=== PATIENT | male | born 1955 | race Caucasian/White ===

== ENCOUNTER 2016-09-15 17:06 | Inpatient (IN) | payer OTHER ==
[~2016-09-15] VITALS: Ht 170.2 cm; Wt 96.0 kg
[~2016-09-15 17:06] MED LIST: BENA40TA54 PO; CEPH500C PO; CLON0.2T5 PO; FENO54TA7 PO; FINA5TAB4 PO; LORA-444 PO; MECL-77 PO; METF500T4 PO; NIFE30TA60 PO; SERT-165 PO; SERT20OR2 PO; TAMS0.4C2 PO; TRAZ50TA18 PO; [UNRECOGNIZED DRUG - CODE] IM
[2016-09-15] MEDS ORDERED: ONDANSETRON 4 MG INJ IV STA (18:32)
[2016-09-15] MEDS ORDERED: NITROGLYCERIN 2% 1 GM OINT PKT TD STA (18:32)
[2016-09-15] MEDS ORDERED: morphine 4 MG/ML VIAL IV STA (18:32)
[2016-09-15] MEDS ORDERED: FUROSEMIDE 40 MG INJ IV STA (18:32)
[2016-09-15] MEDS ORDERED: NPH,100V SQ (18:58)
[2016-09-15] MEDS ORDERED: NITROGLYCERIN (SL) 0.4 MG TAB SL PRN (19:00)
[2016-09-15] MEDS ORDERED: LORA1TAB PO (19:00)
[2016-09-15] MEDS ORDERED: MECL-77 PO (19:01)
[2016-09-15] MEDS ORDERED: SERT50TA6 PO (19:04)
[2016-09-15] MEDS ORDERED: PRED20TA PO (19:05)
[2016-09-15] MEDS ORDERED: TAMS0.4C2 PO (19:05)
[2016-09-15] MEDS ORDERED: ASPI81TA3 PO (19:07)
[2016-09-15] MEDS ORDERED: TERA5CAP3 PO (19:07)
[2016-09-15] MEDS ORDERED: GLIM2TAB PO (19:08)
[2016-09-15] MEDS ORDERED: METO10TA92 PO (19:09)
[2016-09-15] MEDS ORDERED: NOVO3I SC (19:13)
[2016-09-15] MEDS ORDERED: PANT40TA4 PO (19:14)
[2016-09-15] MEDS ORDERED: PARO-37 PO (19:15)
[2016-09-15] MEDS ORDERED: POLY17PO3 PO (19:18)
[2016-09-15] MEDS ORDERED: DOCU100T PO (19:19)
[2016-09-15 19:21] LABS: ADD SCAN DIFF NO
[2016-09-15] MEDS ORDERED: FENO54TA7 PO (19:21)
[2016-09-15] MEDS ORDERED: FINA5TAB4 PO (19:22)
[2016-09-15] MEDS ORDERED: FURO40TA4 PO (19:23)
[2016-09-15 19:24] LABS: BASOPHILS % 0.3 % (0.0-2.0); EOSINOPHILS # 0.2 10^3/ul (0.0-0.5); EOSINOPHILS % 2.9 % (0.0-7.0); HEMATOCRIT 27.5 % (42.0-52.0); HEMOGLOBIN 9.2 g/dl (14.0-18.0); LYMPHOCYTES # 1.2 10^3/ul (0.8-2.9); LYMPHOCYTES % 19.7 % (15.0-51.0); MEAN CORPUSCULAR HEMOGLOBIN 30.8 pg (29.0-33.0); MEAN CORPUSCULAR HGB CONC 33.5 g/dl (32.0-37.0); MEAN PLATELET VOLUME 11.9 fl (7.4-10.4); MONOCYTE # 0.5 10^3/ul (0.3-0.9); MONOCYTES % 8.3 % (0.0-11.0); NEUTROPHILS % 68.5 % (39.0-77.0); PLATELET COUNT 199 10^3/UL (140-415); RED BLOOD COUNT 2.99 10^6/ul (4.70-6.10); RED CELL DISTRIBUTION WIDTH 13.7 % (11.5-14.5); WHITE BLOOD COUNT 5.9 10^3/ul (4.8-10.8)
[2016-09-15] MEDS ORDERED: GEMF600T60 PO (19:24)
[2016-09-15] MEDS ORDERED: GABA-526 PO (19:24)
[2016-09-15] MEDS ORDERED: ATEN50TA PO (19:28)
[2016-09-15] MEDS ORDERED: ATOR20TA38 PO (19:29)
[2016-09-15] MEDS ORDERED: BENA10TA48 PO (19:29)
[2016-09-15] MEDS ORDERED: CARV12.579 PO (19:30)
[2016-09-15] MEDS ORDERED: CLON0.2T5 PO (19:31)
[2016-09-15 19:44] LABS: ALBUMIN 4.1 g/dl (3.3-4.9); ALBUMIN/GLOBULIN RATIO 1.86; BILIRUBIN,INDIRECT 0.3 mg/dl (0-1.1); BILIRUBIN,TOTAL 0.3 mg/dl (0.2-1.3); CALCIUM 8.9 mg/dl (8.4-10.2); CREATININE 1.49 mg/dl (0.61-1.24); POTASSIUM 3.7 mmol/L (3.5-5.1); TOTAL PROTEIN 6.3 g/dl (6.1-8.1)
[2016-09-15 19:55] LABS: TROPONIN-I 0.026 ng/ml (0.00-0.12)
--- NOTE | 2016-09-15 20:33 | RADRPT ---
PROCEDURE: XR Chest. CLINICAL INDICATION: Chest pain and dyspnea TECHNIQUE: AP Portable chest. COMPARISON: None available FINDINGS: The soft tissues and bones are remarkable for thoracic spondylosis and bilateral acromioclavicular o steoarthropathy. Mild coarse bilateral interstitial edema is present. Mild cardiomegaly is present with vascular calcifications of the thoracic aorta. No focal infiltrates, masses, or effusions are noted. No pneumothorax is present. IMPRESSION: 1. Mild cardiogenic pulmonary venous hypertension 2. Mild cardiomegaly and atherosclerotic vascular disease 3. Bilateral acromioclavicular osteoarthropathy and thoracic spondylosis. RPTAT: HDC .Charu Batres MD, Date Time Electronically viewed and signed by .Charu Batres MD, on 09/15/2016 20:32 .C/
--- NOTE | 2016-09-15 21:28 | ERA ---
ER Documentation Chief Complaint Date/Time DATE: 09/15/16 TIME: 21:23 Chief Complaint CHEST PAIN, SOB, ONSET TODAY, SENT PER PMD HPI This is a 60-year-old male who is here for chest pain and shortness of breath. The patient states that he is having some swelling around his ankles and feet off and on for the past few months. He said he has been to all of the hospital multiple occasions but he has not been told why he keeps getting short of breath. Patient states he gets recurrent swelling and shortness of breath on several occasions and he has dyspnea on exertion and orthopnea. He says it has been going on now for the past 3 or 4 days and is getting worse. He says it happened a hard time walking across the room. And is also getting shortness of breath at rest. Denies any cough fever. He says his chest pain is a tight feeling in the chest that tends to come and go with no radiation no palpitations or dizziness or syncope. ROS All systems reviewed and are negative except as per history of present illness. Medications Home Meds Reported Medications Clonidine Hcl* (Clonidine Hcl*) 0.2 Mg Tablet, 0.2 MG PO TID Y for HTN, TAB 09/15/16 Carvedilol* (Carvedilol*) 12.5 Mg Tablet, 12.5 MG PO BID, #60 TAB 09/15/16 Benazepril Hcl* (Benazepril Hcl*) 10 Mg Tablet, 10 MG PO DAILY, #30 TAB 09/15/16 Atorvastatin Calcium* (Atorvastatin Calcium*) 20 Mg Tablet, 20 MG PO DAILY, #30 TAB 09/15/16 Atenolol* (Atenolol*) 50 Mg Tablet, 50 MG PO BID, #60 TAB 09/15/16 Gemfibrozil* (Gemfibrozil*) 600 Mg Tablet, 600 MG PO BID, TAB 09/15/16 Gabapentin* (Gabapentin*) 600 Mg Tablet, 600 MG PO TID, #90 TAB 09/15/16 Furosemide* (Furosemide*) 40 Mg Tablet, 40 MG PO BID, TAB 09/15/16 Finasteride* (Finasteride*) 5 Mg Tablet, 5 MG PO QHS, TAB 09/15/16 Fenofibrate, Micronized (Fenofibrate) 54 Mg Tablet, 54 MG PO DAILY, TAB 09/15/16 Docusate Sodium* (Dok*) 100 Mg Tablet, 100 MG PO DAILY, #30 CAP 09/15/16 Polyethylene Glycol* (Polyethylene Glycol*) 17 Gm Powd.pack, 17 GM PO BID, #60 PACKET 09/15/16 Paroxetine Hcl* (Paroxetine*) 20 Mg Tablet, 20 MG PO DAILY, TAB 09/15/16 Pantoprazole* (Pantoprazole*) 40 Mg Tablet.dr, 40 MG PO AC BREAKFAST DINNER, TAB 09/15/16 Insulin Aspart* (Novolog Insulin Pen*) 100 Unit/Ml Soln, 0 SC WITH MEALS BEDTIME for SLIDING SCALES, EA TAKE 2-10 UNITS 09/15/16 Metoclopramide* (Reglan*) 10 Mg Tablet, 10 MG PO AC MEALS, TAB 09/15/16 Glimepiride* (Glimepiride*) 2 Mg Tablet, 2 MG PO WITH BREAKFAST DINNE, TAB 09/15/16 Aspirin* (Aspirin* Chew) 81 Mg Tab.chew, 81 MG PO DAILY, TAB.CHEW 09/15/16 Terazosin Hcl* (Terazosin Hcl*) 5 Mg Capsule, 10 MG PO HS, CAP 09/15/16 Tamsulosin Hcl* (Tamsulosin Hcl*) 0.4 Mg Cap.er.24h, 0.4 MG PO DAILY, CAP 09/15/16 Prednisone* (Prednisone*) 20 Mg Tab, 20 MG PO DAILY, TAB 09/15/16 Sertraline Hcl* (Sertraline Hcl*) 50 Mg Tablet, 50 MG PO QHS, #30 TAB 09/15/16 Meclizine Hcl* (Meclizine Hcl*) 25 Mg Tablet, 25 MG PO DAILY Y for DIZZINESS, TAB 09/15/16 Lorazepam* (Lorazepam*) 1 Mg Tablet, 1 MG PO HS Y for ANXIETY, #30 TAB 09/15/16 Insulin NPH Human Isophane (Humulin N) 100 Unit/1 Ml Vial, 6 UNIT SQ Q6H, VIAL 09/15/16 Discontinued Reported Medications Tamsulosin Hcl* (Tamsulosin Hcl*) 0.4 Mg Cap.er.24h, PO 05/23/13 Sertraline Hcl* (Sertraline Hcl*) 100 Mg Tablet, 100 MG PO 05/23/13 Sertraline Hcl* (Sertraline Hcl*) 20 Mg/Ml Oral.conc, 20 MG PO 05/23/13 Meclizine Hcl* (Meclizine Hcl*) 25 Mg Tablet, 25 MG PO 05/23/13 Influenza Tv-S 10-11 Vaccine (FLUVIRIN) 45 Mcg/0.5 Ml Vial, 45 MCG IM, VIAL 05/23/13 Finasteride* (Finasteride*) 5 Mg Tablet, PO 05/23/13 Fenofibrate, Micronized (Fenofibrate) 54 Mg Tablet, 54 MG PO 05/23/13 Cephalexin* (Cephalexin*) 500 Mg Capsule, PO 05/23/13 Benazepril Hcl* (Lotensin*) 40 Mg Tablet, 40 MG PO 05/23/13 Trazodone Hcl* (Trazodone Hcl*) 50 Mg Tablet, 50 MG PO HS 05/20/11 Metformin Hcl* (Metformin Hcl*) 500 Mg Tablet, 500 MG PO DAILY 05/20/11 Nifedipine* (Nifedipine ER*) 30 Mg Tablet.sa, 30 MG PO DAILY 05/20/11 Lorazepam* (Ativan*) 2 Mg Tablet, 2 MG PO Y 05/20/11 Clonidine Hcl* (Clonidine Hcl*) 0.2 Mg Tablet, 0.2 MG PO DAILY 05/20/11 Allergies Allergies: Coded Allergies: No Known Drug Allergies (Verified Allergy, Unknown, 09/15/16) PMhx/Soc History of Surgery: Yes Anesthesia Reaction: No Hx Respiratory Disorders: No Hx Cardiac Disorders: No Hx Psychiatric Problems: No Hx Miscellaneous Medical Probl: Yes Hx Alcohol Use: Yes Hx Substance Use: No Hx Tobacco Use: Yes Smoking Status: Never smoker FmHx Family History: No coronary disease Physical Exam Vitals Vital Signs Date Time Temp Pulse Resp B/P Pulse Ox O2 Delivery O2 Flow Rate FiO2 09/15/16 19:00 Nasal Cannula 2 09/15/16 19:00 98.2 82 18 166/108 98 Room Air 09/15/16 17:10 98.4 73 19 190/109 96 Physical Exam Const: Well-developed, well-nourished Head: Atraumatic, normocephalic Eyes: Normal Conjunctiva, PERRLA, EOMI, normal sclera, no nystagmus ENT: Normal External Ears, Nose and Mouth, moist mucus membranes. Neck: Full range of motion. No meningismus, no lymphadenopathy. Resp: No increased work of breathing with diffuse crackles throughout the lung hodgson Cardio: Regular rate and rhythm, no murmurs, S1 S2 present Abd: Soft, non tender x 4, non distended. Normal bowel sounds, no guarding or rebound, no pulsitile abdominal masses or bruits Skin: No petechiae or rashes, no ecchymosis , no maculopapular rash Back: No midline or flank tenderness Ext: No cyanosis, edema to the feet and ankles, FROM x 4, normal inspection, neurovascularly intact x 4 Neur: Awake and alert, STR 5/5 x 4, sensation intact x 4, no focal findings, cerebellum intact Psych: Normal Mood and Affect Result Diagram: 09/15/16190909/15/161909 Results 24 hrs Laboratory Tests Test 09/15/16 19:10 White Blood Count 5.910^3/ul Red Blood Count 2.9910^6/ul Hemoglobin 9.2g/dl Hematocrit 27.5% Mean Corpuscular Volume 92.0fl Mean Corpuscular Hemoglobin 30.8pg Mean Corpuscular Hemoglobin Concent 33.5g/dl Red Cell Distribution Width 13.7% Platelet Count 20377^3/UL Mean Platelet Volume 11.9fl Neutrophils % 68.5% Lymphocytes % 19.7% Monocytes % 8.3% Eosinophils % 2.9% Basophils % 0.3% Nucleated Red Blood Cells % 0.0/100WBC Neutrophils # 4.010^3/ul Lymphocytes # 1.210^3/ul Monocytes # 0.510^3/ul Eosinophils # 0.210^3/ul Basophils # 0.010^3/ul Nucleated Red Blood Cells # 0.010^3/ul Sodium Level 139mmol/L Potassium Level 3.7mmol/L Chloride Level 105mmol/L Carbon Dioxide Level 28mmol/L Anion Gap 10 Blood Urea Nitrogen 12mg/dl Creatinine 1.49mg/dl Glucose Level 59mg/dl Calcium Level 8.9mg/dl Total Bilirubin 0.3mg/dl Direct Bilirubin 0.00mg/dl Indirect Bilirubin 0.3mg/dl Aspartate Amino Transf (AST/SGOT) 56IU/L Alanine Aminotransferase (ALT/SGPT) 53IU/L Alkaline Phosphatase 70IU/L Troponin I 0.026ng/ml B-Type Natriuretic Peptide 3160PG/ML Total Protein 6.3g/dl Albumin 4.1g/dl Globulin 2.20g/dl Albumin/Globulin Ratio 1.86 Current Medications Medications (Trade) Dose Ordered Sig/Deon Route PRN Reason Start Time Stop Time Status Last Admin Dose Admin Nitroglycerin (Nitroglycerin 2% Oint) 1 inch ONCE STAT TD 09/15/16 18:32 09/15/16 18:34 DC 09/15/16 19:02 Nitroglycerin (Nitroglycerin (Sl Tab) 0.4 Mg) 1 tab Q5M UP TO 3 DOSES PRN SL CHEST PAIN 09/15/16 19:00 09/15/16 19:39 Morphine Sulfate (morphine) 4 mg ONCE STAT IV 09/15/16 18:32 09/15/16 18:34 DC 09/15/16 19:02 Ondansetron HCl (Zofran Inj) 4 mg ONCE STAT IV 09/15/16 18:32 09/15/16 18:34 DC 09/15/16 19:02 Furosemide (Lasix) 40 mg ONCE STAT IV 09/15/16 18:32 09/15/16 18:34 DC 09/15/16 19:02 Procedures/MDM EKG: Rate/Rhythm: Normal sinus rhythm heart rate [address] changes QRS, ST, QT: NORMAL VT, QRS, QT] Impression: NORMAL EKG PROCEDURE: XR Chest. CLINICAL INDICATION: Chest pain and dyspnea TECHNIQUE: AP Portable chest. COMPARISON: None available FINDINGS: The soft tissues and bones are remarkable for thoracic spondylosis and bilateral acromioclavicular osteoarthropathy. Mild coarse bilateral interstitial edema is present. Mild cardiomegaly is present with vascular calcifications of the thoracic aorta. No focal infiltrates, masses, or effusions are noted. No pneumothorax is present. IMPRESSION: 1. Mild cardiogenic pulmonary venous hypertension 2. Mild cardiomegaly and atherosclerotic vascular disease 3. Bilateral acromioclavicular osteoarthropathy and thoracic spondylosis. RPTAT: HDC .Charu Batres MD, MD Date Time Electronically viewed and signed by .Charu Batres MD, on 09/15/2016 20: 32 .C/ CC: MART CARNES DO Patient has elevated BNP. Is also having chest pain with CHF symptoms. Patient was given some Lasix for diuresis Patient's symptoms are concerning for cardiac cause will require inpatient workup and continuous monitoring. Further w/u for ischemia, arrhythmia, PE or dissection will be deferred to the inpatient team. Accepting Care Team: Current data and ongoing care discussed. Time: Time of admission Primary Provider: [XOXOXO] Consulting: [XOXOXO] Outstanding Data: none Departure Diagnosis: Primary Impression: Chest pain Qualified Code: R07.9 - Chest pain, unspecified type Additional Impression: CHF (congestive heart failure) Qualified Code: I50.9 - Congestive heart failure, unspecified congestive heart failure chronicity, unspecified congestive heart failure type Condition: Stable MART CARNES DO Sep 15, 2016 21:28
[2016-09-15] MEDS ORDERED: ASPIRIN 325 MG TAB PO ONE (21:29)
[2016-09-15] MEDS ORDERED: ONDANSETRON 4 MG INJ IV PRN (23:00)
[2016-09-15] MEDS ORDERED: ACETAMINOPHEN 325 MG TAB PO PRN (23:00)
[2016-09-15 23:23] VITALS: TEMP 98.2
[2016-09-16] VITALS (11 sets, daily range): BP systolic 132–158; BP diastolic 68–84; PULSE 54–70; RESP 17–20; Ht 170.2 cm; Wt 96.0 kg
[2016-09-16] MEDS ORDERED: TRAZ50TA18 PO (06:45)
[2016-09-16] MEDS ORDERED: LATA2.5D2 BOTH EYES (06:45)
[2016-09-16] MEDS ORDERED: LORAZEPAM 1 MG TAB PO PRN (07:00)
[2016-09-16] MEDS ORDERED: GLUCOSE GEL 15 GRAM TUBE BUCCAL PRN (07:00)
[2016-09-16] MEDS ORDERED: NITROGLYCERIN (SL) 0.4 MG TAB SL PRN (07:00)
[2016-09-16] MEDS ORDERED: MECLIZINE 25 MG TAB PO PRN (07:00)
[2016-09-16] MEDS ORDERED: GLUCAGON 1 MG INJ IM PRN (07:00)
[2016-09-16] MEDS ORDERED: GLUCOSE GEL 15 GRAM TUBE PO PRN ×2 (07:00)
[2016-09-16] MEDS ORDERED: DEXTROSE 50% 50 ML SYRINGE IV PRN ×2 (07:00)
[2016-09-16] MEDS: INSULIN ASPART [NOVOLOG] 3 ML PEN SC SCH ×7 (07:55→20:37)
[2016-09-16] MEDS: INSULIN GLARGINE [LANtus] 3 ML PEN SC SCH (08:00)
[2016-09-16 08:44] LABS: CHOL/HDL RATIO 3.3 RATIO
[2016-09-16] MEDS: ASPIRIN 81 MG TAB PO SCH (09:21)
[2016-09-16] MEDS: PAROXETINE 20 MG TAB PO SCH (09:21)
[2016-09-16] MEDS: ATENOLOL 50 MG TAB PO SCH ×2 (09:21→21:00)
[2016-09-16] MEDS: ATORVASTATIN 20 MG TAB PO SCH (09:21)
[2016-09-16] MEDS: TAMSULOSIN (SR) 0.4 MG CAP PO SCH (09:21)
[2016-09-16] MEDS: BENAZEPRIL 10 MG TAB PO SCH (09:22)
[2016-09-16] MEDS: DOCUSATE SODIUM 100 MG CAP PO SCH (09:22)
[2016-09-16] MEDS: GEMFIBROZIL 600 MG TAB PO SCH ×2 (09:22→20:37)
[2016-09-16] MEDS: POLYETHYLENE GLYCOL 17 GM PACKET PO SCH ×2 (09:22→20:37)
[2016-09-16] MEDS: GABAPENTIN 300 MG CAP PO SCH ×3 (09:22→20:36)
[2016-09-16] MEDS: FUROSEMIDE 40 MG TAB PO SCH ×2 (09:26→17:52)
[2016-09-16] MEDS: FENOFIBRATE 48 MG TAB PO SCH (10:09)
--- NOTE | 2016-09-16 16:27 | CONS ---
Date/Time of Note Date/Time of Note DATE: 09/16/16 TIME: 16:15 Assessment/Plan Assessment/Plan Chief Complaint/Hosp Course IMP: 1.Chest pain-assess for ACS 2. SOB 3.HTN 4.HL 5. DM 6. positive tob 7.BPH 8. Anemia 9. Renal failure Rec: -Tele -serial ecg's -Complete judy -continue coreg and d/c second BB -Continue lasix diuresis and follow output/renal function -Continue asa/benazepril -Continue lopid and check fasting lipid panel and adjust as necessary Problems: Consultation Date/Type/Reason Admit Date/Time Sep 15, 2016 at 22:52 Date of Consultation: Sep 16, 2016 Type of Consultation: cardiology Reason for Consultation chest pain/sob/edema Referring Provider: KARON MEJIA MD Hx of Present Illness 60 y/o male with h/o HTN, HL, DM, BPH, ongoing tob use, psyc h d/o BPH who p./w 2 weeks of worsening sob with minimal exertion and associated Lower exetremity edema. Patient also c/o chest pain, squeezing to pressure like in nature , worse with minimal exertion, no radiation. Constitutional: no complaints Eyes: no complaints ENT: no complaints Respiratory: shortness of breath Cardiovascular: chest pain Gastrointestinal: no complaints Genitourinary: other (BPH) Musculoskeletal: bone/joint pain Skin: no complaints Neurologic: no complaints Endocrine: other (DM) Lymphatic: no complaints Psychological: no complaints Past Medical History Medical History: diabetes, high cholesterol, hypertension, other (BPH) Past Surgical History Past Surgical Hx: no surgical history Family History Significant Family History: no pertinent family hx Social History Alcohol Use: occasionally Smoking Status: Current every day smoker Drug Use: none Exam/Review of Systems Vital Signs Vitals Vital Signs Date Time Temp Pulse Resp B/P Pulse Ox O2 Delivery O2 Flow Rate FiO2 09/16/16 16:09 60 09/16/16 15:29 98.0 20 157/83 98 09/16/16 08:52 Nasal Cannula 2.0 Intake and Output 09/15/16 09/15/16 09/16/16 15:00 23:00 07:00 Output Total 150 ml Balance -150 ml Exam Constitutional: alert Psych: no complaints Head: normocephalic ENMT: mucosa pink and moist Neck: jvd (8-9 cm water), supple Respiratory: diminished breath sounds (at bases/B) Cardiovascular: regular rate and rhythm Gastrointestinal: non-tender, soft Musculoskeletal: muscle tone (normal) Extremities: edema (none) Neurological: other (no focal deficits) Results Result Diagram: 09/15/16190909/15/161909 Results 24 hrs Laboratory Tests Test 09/15/16 19:10 09/16/16 01:51 09/16/16 02:28 09/16/16 06:30 White Blood Count 5.9 Red Blood Count 2.99 L Hemoglobin 9.2 L Hematocrit 27.5 L Mean Corpuscular Volume 92.0 Mean Corpuscular Hemoglobin 30.8 Mean Corpuscular Hemoglobin Concent 33.5 Red Cell Distribution Width 13.7 Platelet Count 199 Mean Platelet Volume 11.9 H Neutrophils % 68.5 Lymphocytes % 19.7 Monocytes % 8.3 Eosinophils % 2.9 Basophils % 0.3 Nucleated Red Blood Cells % 0.0 Neutrophils # 4.0 Lymphocytes # 1.2 Monocytes # 0.5 Eosinophils # 0.2 Basophils # 0.0 Nucleated Red Blood Cells # 0.0 Sodium Level 139 Potassium Level 3.7 Chloride Level 105 Carbon Dioxide Level 28 Anion Gap 10 Blood Urea Nitrogen 12 Creatinine 1.49 H Glucose Level 59 L Calcium Level 8.9 Total Bilirubin 0.3 Direct Bilirubin 0.00 Indirect Bilirubin 0.3 Aspartate Amino Transf (AST/SGOT) 56 H Alanine Aminotransferase (ALT/SGPT) 53 Alkaline Phosphatase 70 Troponin I 0.026 B-Type Natriuretic Peptide 3160 H Total Protein 6.3 Albumin 4.1 Globulin 2.20 Albumin/Globulin Ratio 1.86 Bedside Glucose 68 L 88 Triglycerides Level 62 Cholesterol Level 113 LDL Cholesterol, Calculated 67 HDL Cholesterol 34 Cholesterol/HDL Ratio 3.3 Test 09/16/16 08:05 09/16/16 12:05 09/16/16 12:16 Bedside Glucose 79 73 Troponin I 0.019 Medications Medications Current Medications Insulin Glargine (Lantus) 15 unit DAILY@08 SC ; Start 09/16/16 at 08:00 Diagnostic Test (Pha) (Accu-Chek) 1 ea 02 XX ; Start 09/17/16 at 02:00 Nitroglycerin (Nitroglycerin (Sl Tab) 0.4 Mg) 1 tab Q5M PRN SL ANGINA; Start at 07:00 Miscellaneous Information 1 ea NOTE XX ; Start 09/16/16 at 07:00 Glucose (Glutose) 15 gm Q15M PRN PO DECREASED GLUCOSE; Start 09/16/16 at 07:00 Glucose (Glutose) 22.5 gm Q15M PRN PO DECREASED GLUCOSE; Start 09/16/16 at 07: 00 Dextrose (D50w Syringe) 25 ml Q15M PRN IV DECREASED GLUCOSE; Start 09/16/16 at 07:00 Dextrose (D50w Syringe) 50 ml Q15M PRN IV DECREASED GLUCOSE; Start 09/16/16 at 07:00 Glucagon (Glucagen) 1 mg Q15M PRN IM DECREASED GLUCOSE; Start 09/16/16 at 07:00 Glucose (Glutose) 15 gm Q15M PRN BUCCAL DECREASED GLUCOSE; Start 09/16/16 at 07 :00 Aspirin (Aspirin) 81 mg DAILY PO Last administered on 09/16/16 09:21; Admin Dose 81 MG; Start 09/16/16 at 09:00 Atenolol (Tenormin) 50 mg BID PO Last administered on 09/16/16 09:21; Admin Dose 50 MG; Start 09/16/16 at 09:00 Atorvastatin Calcium (Lipitor) 20 mg DAILY PO Last administered on 09/16/16 09 :21; Admin Dose 20 MG; Start 09/16/16 at 09:00 Benazepril HCl (Lotensin) 20 mg DAILY PO Last administered on 09/16/16 09:22; Admin Dose 20 MG; Start 09/16/16 at 09:00 Carvedilol (Coreg) 12.5 mg BID PO Last administered on 09/16/16 09:21; Admin Dose 12.5 MG; Start 09/16/16 at 09:00 Docusate Sodium (Colace) 100 mg DAILY PO Last administered on 09/16/16 09:22; Admin Dose 100 MG; Start 09/16/16 at 09:00 Gabapentin (Neurontin) 600 mg TID PO Last administered on 09/16/16 12:14; Admin Dose 600 MG; Start 09/16/16 at 09:00 Gemfibrozil (Lopid) 600 mg BID PO Last administered on 09/16/16 09:22; Admin Dose 600 MG; Start 09/16/16 at 09:00 Lorazepam (Ativan) 1 mg HS PRN PO ANXIETY; Start 09/16/16 at 07:00 Meclizine HCl (Antivert) 25 mg DAILY PRN PO DIZZINESS; Start 09/16/16 at 07:00 Paroxetine HCl (Paxil) 20 mg DAILY PO Last administered on 09/16/16 09:21; Admin Dose 20 MG; Start 09/16/16 at 09:00 Polyethylene Glycol (Miralax) 17 gm BID PO Last administered on 09/16/16 09:22 ; Admin Dose 17 GM; Start 09/16/16 at 09:00 Sertraline HCl (Zoloft) 50 mg QHS PO ; Start 09/16/16 at 21:00 Tamsulosin HCl (Flomax) 0.4 mg DAILY PO Last administered on 09/16/16 09:21; Admin Dose 0.4 MG; Start 09/16/16 at 09:00 Terazosin HCl (Hytrin) 10 mg HS PO ; Start 09/16/16 at 21:00 Fenofibrate (Tricor) 48 mg DAILY PO Last administered on 09/16/16 10:09; Admin Dose 48 MG; Start 09/16/16 at 09:00 Latanoprost (Xalatan) 1 drop QHS BOTH EYES ; Start 09/16/16 at 21:00 Trazodone HCl (Desyrel) 75 mg QHS PO ; Start 09/16/16 at 21:00 ANN OZUNA Sep 16, 2016 16:26
[2016-09-16] MEDS ORDERED: hydrALAzine 20 MG INJ IV PRN (16:30)
--- NOTE | 2016-09-16 18:11 | RADRPT ---
Echocardiogram Report Patient Name: DAIN ROMERO Gender: Male Date: 1955 Study Date: 16-Sep-2016 Manager Target: [facility] Location: [id number] Ref. Physician: KARON MEJIA Quality: Adequate Procedures: Transthoracic echocardiogram with complete 2D, M-Mode, and doppler examination. Indications: Congestive Heart Failure. 2D/M Mode Doppler Measurement Value Normal Ranges Measurement Value Normal Ranges LVIDd 2D 5.0 3.5 - 5.6 cm AV Peak Ochoa 1.1 m/sec LVIDs 2D 2.6 2.1 - 4.1 cm AV Peak PG 4.0 mmHg LVPWd 2D 1.5 0.6 - 1.1 cm LVOT Peak Ochoa 0.9 m/sec IVSd 2D 1.6 0.6 - 1.1 cm LVOT Peak PG 3.0 mmHg AoR Diam 2D 3.6 2.0 - 3.7 cm MV E Peak Ochoa 1.0 m/sec LA Dimen 2D 4.2 2.3 - 4.0 cm MV A Peak Ochoa 0.3 m/sec MV E/A 3.3 MV Decel Time 165 msec MV E/A 3.3 TR Peak Ochoa 2.9 m/sec TR Peak PG 34.0 mmHg RVSP 49.0 mmHg Findings Left Ventricle: Normal left ventricular systolic function. Normal left ventricular cavity size. Moderate concentric left ventricular hypertrophy. Ejection fraction is visually estimated at 60 %. Tissue Doppler/Mitral Doppler indices are consistent with pseudonormalization with mildly elevated left atrial pressure (Stage II diastolic dysfunction). Right Ventricle: Normal right ventricular size. Normal right ventricular systolic function. Left Atrium: There is mild enlargement of left atrium. Right Atrium: The right atrium is normal in size. Mitral Valve: Mitral valve leaflets appear mildly thickened. Mild mitral annular calcification. Mild mitral valve regurgitation. Aortic Valve: No hemodynamically significant aortic stenosis by doppler. Aortic cusps appear mildly calcified. Trace aortic valve regurgitation. Tricuspid Valve: Normal appearance of the tricuspid valve. Estimated peak PA systolic pressure 49 mmHg. There is mild tricuspid regurgitation. Pulmonic Valve: Normal pulmonic valve appearance. Pericardium: Normal pericardium with no significant pericardial effusion. Aorta: Normal aortic root. IVC: Dilated IVC without respiratory collapse consistent with elevated right atrial pressure. Conclusions Normal left ventricular systolic function. Normal left ventricular cavity size. Moderate concentric left ventricular hypertrophy. Ejection fraction is visually estimated at 60 %. Tissue Doppler/Mitral Doppler indices are consistent with pseudonormalization with mildly elevated left atrial pressure (Stage II diastolic dysfunction). Normal right ventricular size. Normal right ventricular systolic function. There is mild enlargement of left atrium. The right atrium is normal in size. Mild mitral valve regurgitation. No hemodynamically significant aortic stenosis by doppler. Trace aortic valve regurgitation. Estimated peak PA systolic pressure 49 mmHg. There is mild tricuspid regurgitation. Normal pericardium with no significant pericardial effusion. Electronically Signed By: Nickolas Jones 16-Sep-2016 18:11:25 -0700 Patient Name: DAIN ROMERO Study Date: 16-Sep-2016 [id number]
[2016-09-16 19:40] LABS: TROPONIN-I 0.021 ng/ml (0.00-0.12)
[2016-09-16 19:48] LABS: CK-MB 0.7 ng/ml (0.0-2.4)
[2016-09-16] MEDS: traZODone 50 MG TAB PO SCH (20:36)
[2016-09-16] MEDS: SERTRALINE 50 MG TAB PO SCH (20:37)
--- NOTE | 2016-09-16 23:27 | HP ---
Date/Time of Note Date/Time of Note DATE: 09/16/16 TIME: 23:25 Assessment/Plan VTE Prophylaxis VTE Prophylaxis Intervention: other Lines/Catheters IV Catheter Type (from [facility]): Saline Lock Urinary Cath still in place: No Assessment/Plan Chief Complaint/Hosp Course A/P SOB HTN HX CHF R/O PR ASHD COPD HX PLAN PER ORDER Problems: HPI/ROS Admit Date/Time Admit Date/Time Sep 15, 2016 at 22:52 ROS Subjective hx not possible: other (sob+) Eyes: no complaints ENT: no complaints Respiratory: shortness of breath Cardiovascular: chest pain Gastrointestinal: no complaints Genitourinary: other (BPH) Musculoskeletal: bone/joint pain Skin: no complaints Neurologic: no complaints Lymphatic: no complaints Psychological: no complaints PMH/Family/Social Past Medical History Medical History: diabetes, high cholesterol, hypertension, other (BPH) Past Surgical History Past Surgical Hx: no surgical history Social History Alcohol Use: occasionally Smoking Status: Current every day smoker Drug Use: none Exam/Review of Systems Vital Signs Vitals Vital Signs Date Time Temp Pulse Resp B/P Pulse Ox O2 Delivery O2 Flow Rate FiO2 09/16/16 20:21 98.4 63 18 132/68 95 09/16/16 08:52 Nasal Cannula 2.0 Intake and Output 09/15/16 09/15/16 09/16/16 15:00 23:00 07:00 Output Total 150 ml Balance -150 ml Exam Constitutional: alert, oriented, well developed Head: atraumatic, normocephalic Eyes: EOMI, nl conjunctiva, nl lids ENMT: nl external ears & nose, nl lips & teeth Neck: supple Respiratory: diminished breath sounds Cardiovascular: nl pulses, regular rate and rhythm Gastrointestinal: nl liver, spleen, non-tender, soft, No distended, No hepatomegaly Musculoskeletal: nl extremities to inspection Extremities: normal pulses Neurological: FORMS DESIGNER II-XII intact, nl mental status, nl speech Skin: nl turgor Lymph: nl lymph nodes Labs Result Diagram: 09/15/16190909/15/161909 Medications Medications Current Medications Insulin Glargine (Lantus) 15 unit DAILY@08 SC ; Start 09/16/16 at 08:00 Diagnostic Test (Pha) (Accu-Chek) 1 ea 02 XX ; Start 09/17/16 at 02:00 Nitroglycerin (Nitroglycerin (Sl Tab) 0.4 Mg) 1 tab Q5M PRN SL ANGINA; Start at 07:00 Miscellaneous Information 1 ea NOTE XX ; Start 09/16/16 at 07:00 Glucose (Glutose) 15 gm Q15M PRN PO DECREASED GLUCOSE; Start 09/16/16 at 07:00 Glucose (Glutose) 22.5 gm Q15M PRN PO DECREASED GLUCOSE; Start 09/16/16 at 07: 00 Dextrose (D50w Syringe) 25 ml Q15M PRN IV DECREASED GLUCOSE; Start 09/16/16 at 07:00 Dextrose (D50w Syringe) 50 ml Q15M PRN IV DECREASED GLUCOSE; Start 09/16/16 at 07:00 Glucagon (Glucagen) 1 mg Q15M PRN IM DECREASED GLUCOSE; Start 09/16/16 at 07:00 Glucose (Glutose) 15 gm Q15M PRN BUCCAL DECREASED GLUCOSE; Start 09/16/16 at 07 :00 Aspirin (Aspirin) 81 mg DAILY PO Last administered on 09/16/16 09:21; Admin Dose 81 MG; Start 09/16/16 at 09:00 Atenolol (Tenormin) 50 mg BID PO Last administered on 09/16/16 09:21; Admin Dose 50 MG; Start 09/16/16 at 09:00 Atorvastatin Calcium (Lipitor) 20 mg DAILY PO Last administered on 09/16/16 09 :21; Admin Dose 20 MG; Start 09/16/16 at 09:00 Benazepril HCl (Lotensin) 20 mg DAILY PO Last administered on 09/16/16 09:22; Admin Dose 20 MG; Start 09/16/16 at 09:00 Carvedilol (Coreg) 12.5 mg BID PO Last administered on 09/16/16 20:36; Admin Dose 12.5 MG; Start 09/16/16 at 09:00 Docusate Sodium (Colace) 100 mg DAILY PO Last administered on 09/16/16 09:22; Admin Dose 100 MG; Start 09/16/16 at 09:00 Gabapentin (Neurontin) 600 mg TID PO Last administered on 09/16/16 20:36; Admin Dose 600 MG; Start 09/16/16 at 09:00 Gemfibrozil (Lopid) 600 mg BID PO Last administered on 09/16/16 20:37; Admin Dose 600 MG; Start 09/16/16 at 09:00 Lorazepam (Ativan) 1 mg HS PRN PO ANXIETY; Start 09/16/16 at 07:00 Meclizine HCl (Antivert) 25 mg DAILY PRN PO DIZZINESS; Start 09/16/16 at 07:00 Paroxetine HCl (Paxil) 20 mg DAILY PO Last administered on 09/16/16 09:21; Admin Dose 20 MG; Start 09/16/16 at 09:00 Polyethylene Glycol (Miralax) 17 gm BID PO Last administered on 09/16/16 09:22 ; Admin Dose 17 GM; Start 09/16/16 at 09:00 Sertraline HCl (Zoloft) 50 mg QHS PO Last administered on 09/16/16 20:37; Admin Dose 50 MG; Start 09/16/16 at 21:00 Tamsulosin HCl (Flomax) 0.4 mg DAILY PO Last administered on 09/16/16 09:21; Admin Dose 0.4 MG; Start 09/16/16 at 09:00 Terazosin HCl (Hytrin) 10 mg HS PO ; Start 09/16/16 at 21:00 Fenofibrate (Tricor) 48 mg DAILY PO Last administered on 09/16/16 10:09; Admin Dose 48 MG; Start 09/16/16 at 09:00 Latanoprost (Xalatan) 1 drop QHS BOTH EYES ; Start 09/16/16 at 21:00 Trazodone HCl (Desyrel) 75 mg QHS PO Last administered on 09/16/16 20:36; Admin Dose 75 MG; Start 09/16/16 at 21:00 Hydralazine HCl (Apresoline) 10 mg Q4H PRN IV SBP>170; Start 09/16/16 at 16:30 Acetaminophen/ Hydrocodone Bitart ([place] (5/325)) 1 tab Q6H PRN PO PAIN LEVEL 4 -6; Start 09/16/16 at 23:30 KARON MEJIA MD Sep 16, 2016 23:27
[2016-09-16] MEDS: LATANOPROST 0.005% 2.5 ML OPH BOTH EYES SCH (23:30)
[2016-09-16] MEDS: TERAZOSIN 5 MG CAP PO SCH (23:30)
[2016-09-17] VITALS (11 sets, daily range): BP systolic 133–160; BP diastolic 66–78; PULSE 57–64; RESP 17–18
[2016-09-17 01:27] LABS: TROPONIN-I 0.023 ng/ml (0.00-0.12)
[2016-09-17 01:28] LABS: CK-MB 0.76 ng/ml (0.0-2.4)
[2016-09-17] MEDS: ACCU-CHEK XX SCH (02:00)
[2016-09-17] MEDS: HYDROCODONE/APAP (5/325) TAB PO PRN (06:28)
[2016-09-17] MEDS: FUROSEMIDE 40 MG TAB PO SCH ×2 (06:29→17:36)
[2016-09-17 07:35] LABS: ADD SCAN DIFF NO
[2016-09-17 07:38] LABS: BASOPHILS % 0.2 % (0.0-2.0); EOSINOPHILS # 0.1 10^3/ul (0.0-0.5); EOSINOPHILS % 2.3 % (0.0-7.0); HEMATOCRIT 31.2 % (42.0-52.0); HEMOGLOBIN 10.4 g/dl (14.0-18.0); LYMPHOCYTES # 0.8 10^3/ul (0.8-2.9); LYMPHOCYTES % 15.9 % (15.0-51.0); MEAN CORPUSCULAR HEMOGLOBIN 30.5 pg (29.0-33.0); MEAN CORPUSCULAR HGB CONC 33.3 g/dl (32.0-37.0); MEAN CORPUSCULAR VOLUME 91.5 fl (82.0-101.0); MONOCYTE # 0.5 10^3/ul (0.3-0.9); MONOCYTES % 10.1 % (0.0-11.0); NEUTROPHIL # 3.7 10^3/ul (1.6-7.5); NEUTROPHILS % 71.3 % (39.0-77.0); PLATELET COUNT 198 10^3/UL (140-415); RED BLOOD COUNT 3.41 10^6/ul (4.70-6.10); RED CELL DISTRIBUTION WIDTH 13.6 % (11.5-14.5); WHITE BLOOD COUNT 5.2 10^3/ul (4.8-10.8)
[2016-09-17] MEDS: INSULIN ASPART [NOVOLOG] 3 ML PEN SC SCH ×7 (07:55→20:31)
[2016-09-17 08:08] LABS: CHOL/HDL RATIO 3.2 RATIO
[2016-09-17 08:10] LABS: ALBUMIN/GLOBULIN RATIO 1.42; BILIRUBIN,INDIRECT 0.8 mg/dl (0-1.1); BILIRUBIN,TOTAL 0.8 mg/dl (0.2-1.3); CREATININE 1.44 mg/dl (0.61-1.24); POTASSIUM 3.4 mmol/L (3.5-5.1); TOTAL PROTEIN 6.8 g/dl (6.1-8.1)
[2016-09-17] MEDS: INSULIN GLARGINE [LANtus] 3 ML PEN SC SCH (08:41)
[2016-09-17] MEDS: FENOFIBRATE 48 MG TAB PO SCH (09:33)
[2016-09-17] MEDS: ATORVASTATIN 20 MG TAB PO SCH (09:33)
[2016-09-17] MEDS: ATENOLOL 50 MG TAB PO SCH ×2 (09:34→20:30)
[2016-09-17] MEDS: GEMFIBROZIL 600 MG TAB PO SCH ×2 (09:34→20:31)
[2016-09-17] MEDS: DOCUSATE SODIUM 100 MG CAP PO SCH (09:34)
[2016-09-17] MEDS: TAMSULOSIN (SR) 0.4 MG CAP PO SCH (09:34)
[2016-09-17] MEDS: GABAPENTIN 300 MG CAP PO SCH ×3 (09:34→20:30)
[2016-09-17] MEDS: ASPIRIN 81 MG TAB PO SCH (09:34)
[2016-09-17] MEDS: PAROXETINE 20 MG TAB PO SCH (09:34)
[2016-09-17] MEDS: BENAZEPRIL 10 MG TAB PO SCH ×2 (09:36→20:30)
[2016-09-17] MEDS: POLYETHYLENE GLYCOL 17 GM PACKET PO SCH ×2 (09:36→20:29)
--- NOTE | 2016-09-17 10:22 | PQ ---
Date/Time of Note Date/Time of Note DATE: 09/17/16 TIME: 10:[address] Douglas , A review of the medical record found a need for documentation clarification. admitted with SOB and chest pain, found to have CHF. patient had BNP 3160 with elevated troponin 0.026. an ECHO done on 09/16 showed ""Moderate concentric left ventricular hypertrophy. Ejection fraction is visually estimated at 60 %" " Stage II diastolic dysfunction" Please clarify a diagnosis being treated. To facilitate accurate and complete coding, please edwin ( x ) the suspected diagnosis that apply: ( ) Acute diastolic heart failure ( ) Acute systolic heart failure ( ) Acute diastolic and systolic heart failure ( ) chronic diastolic heart failure ( ) chronic systolic heart failure ( ) Other Please provide your response by clicking edit document,~ making~ your choice ( x ), click ok/save and finally click sign. You may also~ document your response~ on~ your progress notes. Thank you for your time. Fidel ANGEL,CCS,CCDS Clinical Power Screwdriver Operator Health Information Management, CD[employer] and Coding Services Room # [id number] - [address]~ [address] FIDEL LOPEZ Sep 17, 2016 10:22
--- NOTE | 2016-09-17 18:00 | CONS ---
Date/Time of Note Date/Time of Note DATE: 09/17/16 TIME: 17:55 Assessment/Plan Assessment/Plan Chief Complaint/Hosp Course IMP: 1.Chest pain-Trop Negative x 3 since admit 2. SOB 3.HTN 4.HL 5. DM 6. positive tob 7.BPH 8. Anemia 9. Renal failure 10.COPD Rec: -Tele -serial ecg's -continue atenolol and d/c second BB given non-selective so as not to provoke bronchospasm -Gentle lasix diuresis and follow output/renal function as tolerated -Continue asa/benazepril -Continue lopid -Consider bronchodilators Problems: Consultation Date/Type/Reason Admit Date/Time Sep 15, 2016 at 22:52 Initial Consult Date 09/16/16 Type of Consultation: cardiology Reason for Consultation sob Referring Provider: KARON MEJIA MD Exam/Review of Systems Vital Signs Vitals Vital Signs Date Time Temp Pulse Resp B/P Pulse Ox O2 Delivery O2 Flow Rate FiO2 09/17/16 16:17 60 09/17/16 15:16 97.8 18 133/78 95 09/17/16 08:03 Nasal Cannula 1.0 Intake and Output 09/16/16 09/16/16 09/17/16 15:00 23:00 07:00 Intake Total 450 ml 300 ml Output Total 800 ml 1800 ml Balance -350 ml -1500 ml Exam Review of Systems: CONSTITUTIONAL: No fevers, chills. PULMONARY: ongoing sob CARDIOVASCULAR: No chest pain/palpitations GASTROINTESTINAL: No nausea/vomiting. GENITOURINARY: No hematuria/dysuria. MUSCULOSKELETAL: No myagias/arthalgias. PSYCHIATRIC: The patient denies depression. NEUROLOGIC: No weakness Constitutional: alert, oriented Psych: no complaints Head: normocephalic ENMT: mucosa pink and moist Neck: jvd (8 cm water), supple Respiratory: diminished breath sounds (throughout) Cardiovascular: regular rate and rhythm Gastrointestinal: non-tender, soft Musculoskeletal: muscle tone (normal) Extremities: edema (none) Neurological: other (No focal deficits) Results Result Diagram: 09/17/16 0650 09/17/16 0650 Results 24 hrs Laboratory Tests Test 09/16/16 18:50 09/16/16 20:34 09/17/16 00:43 09/17/16 06:50 Creatine Kinase 60 57 Creatine Kinase Index 1.2 1.3 Creatinine Kinase MB (Mass) 0.70 0.76 Troponin I 0.021 0.023 Bedside Glucose 90 White Blood Count 5.2 Red Blood Count 3.41 L Hemoglobin 10.4 L Hematocrit 31.2 L Mean Corpuscular Volume 91.5 Mean Corpuscular Hemoglobin 30.5 Mean Corpuscular Hemoglobin Concent 33.3 Red Cell Distribution Width 13.6 Platelet Count 198 Mean Platelet Volume 12.0 H Neutrophils % 71.3 Lymphocytes % 15.9 Monocytes % 10.1 Eosinophils % 2.3 Basophils % 0.2 Nucleated Red Blood Cells % 0.0 Neutrophils # 3.7 Lymphocytes # 0.8 Monocytes # 0.5 Eosinophils # 0.1 Basophils # 0.0 Nucleated Red Blood Cells # 0.0 Sodium Level 141 Potassium Level 3.4 L Chloride Level 100 Carbon Dioxide Level 31 Anion Gap 13 Blood Urea Nitrogen 15 Creatinine 1.44 H Glucose Level 66 L Calcium Level 9.0 Total Bilirubin 0.8 Direct Bilirubin 0.00 Indirect Bilirubin 0.8 Aspartate Amino Transf (AST/SGOT) 30 Alanine Aminotransferase (ALT/SGPT) 43 Alkaline Phosphatase 76 Total Protein 6.8 Albumin 4.0 Globulin 2.80 Albumin/Globulin Ratio 1.42 Triglycerides Level 85 Cholesterol Level 125 LDL Cholesterol, Calculated 69 HDL Cholesterol 39 Cholesterol/HDL Ratio 3.2 Test 09/17/16 08:01 09/17/16 11:38 09/17/16 17:35 Bedside Glucose 80 107 105 Medications Medications Current Medications Insulin Glargine (Lantus) 15 unit DAILY@08 SC Last administered on 09/17/16t 08 :41; Admin Dose 15 UNIT; Start 09/16/16 at 08:00 Diagnostic Test (Pha) (Accu-Chek) 1 ea 02 XX ; Start 09/17/16 at 02:00 Nitroglycerin (Nitroglycerin (Sl Tab) 0.4 Mg) 1 tab Q5M PRN SL ANGINA; Start at 07:00 Miscellaneous Information 1 ea NOTE XX ; Start 09/16/16 at 07:00 Glucose (Glutose) 15 gm Q15M PRN PO DECREASED GLUCOSE; Start 09/16/16 at 07:00 Glucose (Glutose) 22.5 gm Q15M PRN PO DECREASED GLUCOSE; Start 09/16/16 at 07: 00 Dextrose (D50w Syringe) 25 ml Q15M PRN IV DECREASED GLUCOSE; Start 09/16/16 at 07:00 Dextrose (D50w Syringe) 50 ml Q15M PRN IV DECREASED GLUCOSE; Start 09/16/16 at 07:00 Glucagon (Glucagen) 1 mg Q15M PRN IM DECREASED GLUCOSE; Start 09/16/16 at 07:00 Glucose (Glutose) 15 gm Q15M PRN BUCCAL DECREASED GLUCOSE; Start 09/16/16 at 07 :00 Aspirin (Aspirin) 81 mg DAILY PO Last administered on 09/17/16 09:34; Admin Dose 81 MG; Start 09/16/16 at 09:00 Atenolol (Tenormin) 50 mg BID PO Last administered on 09/17/16 09:34; Admin Dose 50 MG; Start 09/16/16 at 09:00 Atorvastatin Calcium (Lipitor) 20 mg DAILY PO Last administered on 09/17/16 09 :33; Admin Dose 20 MG; Start 09/16/16 at 09:00 Benazepril HCl (Lotensin) 20 mg DAILY PO Last administered on 09/17/16 09:36; Admin Dose 20 MG; Start 09/16/16 at 09:00 Carvedilol (Coreg) 12.5 mg BID PO Last administered on 09/17/16 09:35; Admin Dose 12.5 MG; Start 09/16/16 at 09:00 Docusate Sodium (Colace) 100 mg DAILY PO Last administered on 09/17/16 09:34; Admin Dose 100 MG; Start 09/16/16 at 09:00 Gabapentin (Neurontin) 600 mg TID PO Last administered on 09/17/16 13:11; Admin Dose 600 MG; Start 09/16/16 at 09:00 Gemfibrozil (Lopid) 600 mg BID PO Last administered on 09/17/16 09:34; Admin Dose 600 MG; Start 09/16/16 at 09:00 Lorazepam (Ativan) 1 mg HS PRN PO ANXIETY; Start 09/16/16 at 07:00 Meclizine HCl (Antivert) 25 mg DAILY PRN PO DIZZINESS; Start 09/16/16 at 07:00 Paroxetine HCl (Paxil) 20 mg DAILY PO Last administered on 09/17/16 09:34; Admin Dose 20 MG; Start 09/16/16 at 09:00 Polyethylene Glycol (Miralax) 17 gm BID PO Last administered on 09/17/16 09:36 ; Admin Dose 17 GM; Start 09/16/16 at 09:00 Sertraline HCl (Zoloft) 50 mg QHS PO Last administered on 09/16/16 20:37; Admin Dose 50 MG; Start 09/16/16 at 21:00 Tamsulosin HCl (Flomax) 0.4 mg DAILY PO Last administered on 09/17/16 09:34; Admin Dose 0.4 MG; Start 09/16/16 at 09:00 Terazosin HCl (Hytrin) 10 mg HS PO Last administered on 09/16/16 23:30; Admin Dose 10 MG; Start 09/16/16 at 21:00 Fenofibrate (Tricor) 48 mg DAILY PO Last administered on 09/17/16 09:33; Admin Dose 48 MG; Start 09/16/16 at 09:00 Latanoprost (Xalatan) 1 drop QHS BOTH EYES Last administered on 09/16/16 23:30 ; Admin Dose 1 DROP; Start 09/16/16 at 21:00 Trazodone HCl (Desyrel) 75 mg QHS PO Last administered on 09/16/16 20:36; Admin Dose 75 MG; Start 09/16/16 at 21:00 Hydralazine HCl (Apresoline) 10 mg Q4H PRN IV SBP>170; Start 09/16/16 at 16:30 Acetaminophen/ Hydrocodone Bitart ([place] (5/325)) 1 tab Q6H PRN PO PAIN LEVEL 4 -6 Last administered on 09/17/16 06:28; Admin Dose 1 TAB; Start 09/16/16 at 23: 30 Potassium Chloride (Klor-Con 20) 20 meq DAILY PO ; Start 09/18/16 at 09:00 ANN OZUNA Sep 17, 2016 17:59
[2016-09-17] MEDS: LATANOPROST 0.005% 2.5 ML OPH BOTH EYES SCH (20:29)
[2016-09-17] MEDS: traZODone 50 MG TAB PO SCH (20:30)
[2016-09-17] MEDS: SERTRALINE 50 MG TAB PO SCH (20:31)
[2016-09-17] MEDS: TERAZOSIN 5 MG CAP PO SCH (20:31)
--- NOTE | 2016-09-17 21:23 | PN ---
Date/Time of Note Date/Time of Note DATE: 09/17/16 TIME: 21:22 Assessment/Plan VTE Prophylaxis VTE Prophylaxis Intervention: other Lines/Catheters IV Catheter Type (from [facility]): Saline Lock Urinary Cath still in place: No Assessment/Plan Chief Complaint/Hosp Course A/P SOB BETTER HTN HX CHF R/O UT ASHD COPD HX HYPOKALEMIA PLAN PER ORDER PER CARDIO KCL Problems: Subjective 24 Hr Interval Summary Respiratory: shortness of breath (BETTER) Cardiovascular: no complaints Exam/Review of Systems Vital Signs Vitals Vital Signs Date Time Temp Pulse Resp B/P Pulse Ox O2 Delivery O2 Flow Rate FiO2 09/17/16 20:27 98.2 59 18 160/78 99 09/17/16 08:03 Nasal Cannula 1.0 Intake and Output 09/16/16 09/16/16 09/17/16 15:00 23:00 07:00 Intake Total 450 ml 300 ml Output Total 800 ml 1800 ml Balance -350 ml -1500 ml Exam Neck: supple Respiratory: clear to auscultation Cardiovascular: regular rate and rhythm Gastrointestinal: soft Extremities: edema (TR) Results Result Diagram: 09/17/16 0650 09/17/16 0650 Results 24 hrs Laboratory Tests Test 09/17/16 00:43 09/17/16 06:50 09/17/16 08:01 09/17/16 11:38 Creatine Kinase 57 Creatine Kinase Index 1.3 Creatinine Kinase MB (Mass) 0.76 Troponin I 0.023 White Blood Count 5.2 Red Blood Count 3.41 L Hemoglobin 10.4 L Hematocrit 31.2 L Mean Corpuscular Volume 91.5 Mean Corpuscular Hemoglobin 30.5 Mean Corpuscular Hemoglobin Concent 33.3 Red Cell Distribution Width 13.6 Platelet Count 198 Mean Platelet Volume 12.0 H Neutrophils % 71.3 Lymphocytes % 15.9 Monocytes % 10.1 Eosinophils % 2.3 Basophils % 0.2 Nucleated Red Blood Cells % 0.0 Neutrophils # 3.7 Lymphocytes # 0.8 Monocytes # 0.5 Eosinophils # 0.1 Basophils # 0.0 Nucleated Red Blood Cells # 0.0 Sodium Level 141 Potassium Level 3.4 L Chloride Level 100 Carbon Dioxide Level 31 Anion Gap 13 Blood Urea Nitrogen 15 Creatinine 1.44 H Glucose Level 66 L Calcium Level 9.0 Total Bilirubin 0.8 Direct Bilirubin 0.00 Indirect Bilirubin 0.8 Aspartate Amino Transf (AST/SGOT) 30 Alanine Aminotransferase (ALT/SGPT) 43 Alkaline Phosphatase 76 Total Protein 6.8 Albumin 4.0 Globulin 2.80 Albumin/Globulin Ratio 1.42 Triglycerides Level 85 Cholesterol Level 125 LDL Cholesterol, Calculated 69 HDL Cholesterol 39 Cholesterol/HDL Ratio 3.2 Bedside Glucose 80 107 Test 09/17/16 17:35 09/17/16 20:28 Bedside Glucose 105 116 Medications Medications Current Medications Insulin Glargine (Lantus) 15 unit DAILY@08 SC Last administered on 09/17/16 08 :41; Admin Dose 15 UNIT; Start 09/16/16 at 08:00 Diagnostic Test (Pha) (Accu-Chek) 1 ea 02 XX ; Start 09/17/16 at 02:00 Nitroglycerin (Nitroglycerin (Sl Tab) 0.4 Mg) 1 tab Q5M PRN SL ANGINA; Start at 07:00 Miscellaneous Information 1 ea NOTE XX ; Start 09/16/16 at 07:00 Glucose (Glutose) 15 gm Q15M PRN PO DECREASED GLUCOSE; Start 09/16/16 at 07:00 Glucose (Glutose) 22.5 gm Q15M PRN PO DECREASED GLUCOSE; Start 09/16/16 at 07: 00 Dextrose (D50w Syringe) 25 ml Q15M PRN IV DECREASED GLUCOSE; Start 09/16/16 at 07:00 Dextrose (D50w Syringe) 50 ml Q15M PRN IV DECREASED GLUCOSE; Start 09/16/16 at 07:00 Glucagon (Glucagen) 1 mg Q15M PRN IM DECREASED GLUCOSE; Start 09/16/16 at 07:00 Glucose (Glutose) 15 gm Q15M PRN BUCCAL DECREASED GLUCOSE; Start 09/16/16 at 07 :00 Aspirin (Aspirin) 81 mg DAILY PO Last administered on 09/17/16 09:34; Admin Dose 81 MG; Start 09/16/16 at 09:00 Atenolol (Tenormin) 50 mg BID PO Last administered on 09/17/16 20:30; Admin Dose 50 MG; Start 09/16/16 at 09:00 Atorvastatin Calcium (Lipitor) 20 mg DAILY PO Last administered on 09/17/16 09 :33; Admin Dose 20 MG; Start 09/16/16 at 09:00 Docusate Sodium (Colace) 100 mg DAILY PO Last administered on 09/17/16 09:34; Admin Dose 100 MG; Start 09/16/16 at 09:00 Gabapentin (Neurontin) 600 mg TID PO Last administered on 09/17/16 20:30; Admin Dose 600 MG; Start 09/16/16 at 09:00 Gemfibrozil (Lopid) 600 mg BID PO Last administered on 09/17/16 20:31; Admin Dose 600 MG; Start 09/16/16 at 09:00 Lorazepam (Ativan) 1 mg HS PRN PO ANXIETY; Start 09/16/16 at 07:00 Meclizine HCl (Antivert) 25 mg DAILY PRN PO DIZZINESS; Start 09/16/16 at 07:00 Paroxetine HCl (Paxil) 20 mg DAILY PO Last administered on 09/17/16 09:34; Admin Dose 20 MG; Start 09/16/16 at 09:00 Polyethylene Glycol (Miralax) 17 gm BID PO Last administered on 09/17/16 20:29 ; Admin Dose 17 GM; Start 09/16/16 at 09:00 Sertraline HCl (Zoloft) 50 mg QHS PO Last administered on 09/17/16 20:31; Admin Dose 50 MG; Start 09/16/16 at 21:00 Tamsulosin HCl (Flomax) 0.4 mg DAILY PO Last administered on 09/17/16 09:34; Admin Dose 0.4 MG; Start 09/16/16 at 09:00 Terazosin HCl (Hytrin) 10 mg HS PO Last administered on 09/17/16 20:31; Admin Dose 10 MG; Start 09/16/16 at 21:00 Fenofibrate (Tricor) 48 mg DAILY PO Last administered on 09/17/16 09:33; Admin Dose 48 MG; Start 09/16/16 at 09:00 Latanoprost (Xalatan) 1 drop QHS BOTH EYES Last administered on 09/17/16 20:29 ; Admin Dose 1 DROP; Start 09/16/16 at 21:00 Trazodone HCl (Desyrel) 75 mg QHS PO Last administered on 09/17/16 20:30; Admin Dose 75 MG; Start 09/16/16 at 21:00 Hydralazine HCl (Apresoline) 10 mg Q4H PRN IV SBP>170; Start 09/16/16 at 16:30 Acetaminophen/ Hydrocodone Bitart ([place] (5/325)) 1 tab Q6H PRN PO PAIN LEVEL 4 -6 Last administered on 09/17/16 06:28; Admin Dose 1 TAB; Start 09/16/16 at 23: 30 Potassium Chloride (Klor-Con 20) 20 meq DAILY PO ; Start 09/18/16 at 09:00 Benazepril HCl (Lotensin) 20 mg BID PO Last administered on 09/17/16 20:30; Admin Dose 20 MG; Start 09/17/16 at 21:00 Furosemide (Lasix) 20 mg DAILY IV ; Start 09/18/16 at 09:00 KARON MEJIA MD Sep 17, 2016 21:23
[2016-09-18] VITALS (14 sets, daily range): BP systolic 108–174; BP diastolic 51–93; PULSE 44–69; RESP 17–20
[2016-09-18] MEDS: ACCU-CHEK XX SCH (02:00)
[2016-09-18] MEDS: FUROSEMIDE 40 MG TAB PO SCH ×2 (06:17→17:50)
[2016-09-18 07:03] LABS: CALCIUM 9.3 mg/dl (8.4-10.2); CREATININE 1.52 mg/dl (0.61-1.24); POTASSIUM 3.3 mmol/L (3.5-5.1)
--- NOTE | 2016-09-18 08:03 | RADRPT ---
Vent Rate: 59 bpm RR Interval: 0 msec [place] Interval: 174 msec QRS Duration: 88 msec QT Interval: 488 msec QTC Interval: 483 msec P-R-T [place]: 81 - 53 - 62 degrees Sinus bradycardia with marked sinus arrhythmia Prolonged QT Abnormal ECG Electronically Signed By: Richard Cobb [id number]
[2016-09-18] MEDS: ATORVASTATIN 20 MG TAB PO SCH (08:52)
[2016-09-18] MEDS: TAMSULOSIN (SR) 0.4 MG CAP PO SCH (08:52)
[2016-09-18] MEDS: PAROXETINE 20 MG TAB PO SCH (08:53)
[2016-09-18] MEDS: BENAZEPRIL 10 MG TAB PO SCH ×2 (08:53→20:47)
[2016-09-18] MEDS: ATENOLOL 50 MG TAB PO SCH ×2 (08:53→20:49)
[2016-09-18] MEDS: ASPIRIN 81 MG TAB PO SCH (08:53)
[2016-09-18] MEDS: POLYETHYLENE GLYCOL 17 GM PACKET PO SCH ×2 (08:53→20:48)
[2016-09-18] MEDS: GEMFIBROZIL 600 MG TAB PO SCH ×2 (08:53→20:47)
[2016-09-18] MEDS: GABAPENTIN 300 MG CAP PO SCH ×3 (08:53→20:48)
[2016-09-18] MEDS: DOCUSATE SODIUM 100 MG CAP PO SCH (08:53)
[2016-09-18] MEDS: FENOFIBRATE 48 MG TAB PO SCH (08:53)
[2016-09-18] MEDS: INSULIN ASPART [NOVOLOG] 3 ML PEN SC SCH ×7 (08:58→20:39)
[2016-09-18] MEDS: INSULIN GLARGINE [LANtus] 3 ML PEN SC SCH (08:59)
[2016-09-18] MEDS ORDERED: FUROSEMIDE 20 MG INJ IV SCH (09:00)
[2016-09-18] MEDS: POTASSIUM CHLORIDE (SR) 20 MEQ TAB PO SCH (09:13)
--- NOTE | 2016-09-18 14:42 | PN ---
Date/Time of Note Date/Time of Note DATE: 09/18/16 TIME: 14:40 Assessment/Plan VTE Prophylaxis VTE Prophylaxis Intervention: ambulation Lines/Catheters IV [facility]from [facility] Peripheral IV Urinary Cath still in place: No Assessment/Plan Chief Complaint/Hosp Course 1. SOB 2. HTN 3. Diastolic CHF 4. R/O [place] 5. ASHD 6. COPD Problems: Assessment/Plan 1. Per cardiology 2. Optimization kidney function Subjective 24 Hr Interval Summary Constitutional: improved, no complaints Respiratory: no complaints Cardiovascular: no complaints Gastrointestinal: no complaints Exam/Review of Systems Vital Signs Vitals Vital Signs Date Time Temp Pulse Resp B/P Pulse Ox O2 Delivery O2 Flow Rate FiO2 09/18/16 12:42 59 09/18/16 11:52 98.6 18 133/72 95 09/17/16 20:00 Nasal Cannula 2.0 Intake and Output 09/17/16 09/17/16 09/18/16 15:00 23:00 07:00 Intake Total 720 ml 500 ml Output Total 1200 ml 1200 ml Balance -480 ml -700 ml Exam Constitutional: alert, oriented Neck: supple Respiratory: clear to auscultation Cardiovascular: regular rate and rhythm Results Result Diagram: 09/17/16 0650 09/18/16 0546 Results 24 hrs Laboratory Tests Test 09/17/16 17:35 09/17/16 20:28 09/18/16 05:46 09/18/16 08:14 Bedside Glucose 105 116 165 Sodium Level 143 Potassium Level 3.3 L Chloride Level 98 Carbon Dioxide Level 31 Anion Gap 17 H Blood Urea Nitrogen 21 H Creatinine 1.52 H Glucose Level 110 # Calcium Level 9.3 Test 09/18/16 11:36 09/18/16 12:30 Bedside Glucose 273 H 195 Medications Medications Current Medications Insulin Glargine (Lantus) 15 unit DAILY@08 SC Last administered on 09/18/16t 08 :59; Admin Dose 15 UNIT; Start 09/16/16 at 08:00 Diagnostic Test (Pha) (Accu-Chek) 1 ea 02 XX ; Start 09/17/16 at 02:00 Nitroglycerin (Nitroglycerin (Sl Tab) 0.4 Mg) 1 tab Q5M PRN SL ANGINA; Start at 07:00 Miscellaneous Information 1 ea NOTE XX ; Start 09/16/16 at 07:00 Glucose (Glutose) 15 gm Q15M PRN PO DECREASED GLUCOSE; Start 09/16/16 at 07:00 Glucose (Glutose) 22.5 gm Q15M PRN PO DECREASED GLUCOSE; Start 09/16/16 at 07: 00 Dextrose (D50w Syringe) 25 ml Q15M PRN IV DECREASED GLUCOSE; Start 09/16/16 at 07:00 Dextrose (D50w Syringe) 50 ml Q15M PRN IV DECREASED GLUCOSE; Start 09/16/16 at 07:00 Glucagon (Glucagen) 1 mg Q15M PRN IM DECREASED GLUCOSE; Start 09/16/16 at 07:00 Glucose (Glutose) 15 gm Q15M PRN BUCCAL DECREASED GLUCOSE; Start 09/16/16 at 07 :00 Aspirin (Aspirin) 81 mg DAILY PO Last administered on 09/18/16 08:53; Admin Dose 81 MG; Start 09/16/16 at 09:00 Atenolol (Tenormin) 50 mg BID PO Last administered on 09/18/16 08:53; Admin Dose 50 MG; Start 09/16/16 at 09:00 Atorvastatin Calcium (Lipitor) 20 mg DAILY PO Last administered on 09/18/16 08 :52; Admin Dose 20 MG; Start 09/16/16 at 09:00 Docusate Sodium (Colace) 100 mg DAILY PO Last administered on 09/18/16 08:53; Admin Dose 100 MG; Start 09/16/16 at 09:00 Gabapentin (Neurontin) 600 mg TID PO Last administered on 09/18/16 12:35; Admin Dose 600 MG; Start 09/16/16 at 09:00 Gemfibrozil (Lopid) 600 mg BID PO Last administered on 09/18/16 08:53; Admin Dose 600 MG; Start 09/16/16 at 09:00 Lorazepam (Ativan) 1 mg HS PRN PO ANXIETY; Start 09/16/16 at 07:00 Meclizine HCl (Antivert) 25 mg DAILY PRN PO DIZZINESS; Start 09/16/16 at 07:00 Paroxetine HCl (Paxil) 20 mg DAILY PO Last administered on 09/18/16 08:53; Admin Dose 20 MG; Start 09/16/16 at 09:00 Polyethylene Glycol (Miralax) 17 gm BID PO Last administered on 09/18/16 08:53 ; Admin Dose 17 GM; Start 09/16/16 at 09:00 Sertraline HCl (Zoloft) 50 mg QHS PO Last administered on 09/17/16 20:31; Admin Dose 50 MG; Start 09/16/16 at 21:00 Tamsulosin HCl (Flomax) 0.4 mg DAILY PO Last administered on 09/18/16 08:52; Admin Dose 0.4 MG; Start 09/16/16 at 09:00 Terazosin HCl (Hytrin) 10 mg HS PO Last administered on 09/17/16 20:31; Admin Dose 10 MG; Start 09/16/16 at 21:00 Fenofibrate (Tricor) 48 mg DAILY PO Last administered on 09/18/16 08:53; Admin Dose 48 MG; Start 09/16/16 at 09:00 Latanoprost (Xalatan) 1 drop QHS BOTH EYES Last administered on 09/17/16 20:29 ; Admin Dose 1 DROP; Start 09/16/16 at 21:00 Trazodone HCl (Desyrel) 75 mg QHS PO Last administered on 09/17/16 20:30; Admin Dose 75 MG; Start 09/16/16 at 21:00 Hydralazine HCl (Apresoline) 10 mg Q4H PRN IV SBP>170; Start 09/16/16 at 16:30 Acetaminophen/ Hydrocodone Bitart ([place] (5/325)) 1 tab Q6H PRN PO PAIN LEVEL 4 -6 Last administered on 09/17/16 06:28; Admin Dose 1 TAB; Start 09/16/16 at 23: 30 Potassium Chloride (Klor-Con 20) 20 meq DAILY PO Last administered on 09:13; Admin Dose 20 MEQ; Start 09/18/16 at 09:00 Benazepril HCl (Lotensin) 20 mg BID PO Last administered on 09/18/16 08:53; Admin Dose 20 MG; Start 09/17/16 at 21:00 Furosemide (Lasix) 20 mg DAILY IV Last administered on 09/18/16 08:54; Admin Dose 20 MG; Start 09/18/16 at 09:00 TAINA PYLE Sep 18, 2016 14:42
--- NOTE | 2016-09-18 14:55 | CONS ---
Date/Time of Note Date/Time of Note DATE: 09/18/16 TIME: 14:52 Assessment/Plan Assessment/Plan Chief Complaint/Hosp Course IMP: 1.Chest pain-Trop Negative x 3 since admit 2. SOB 3.HTN 4.HL 5. DM 6. positive tob 7.BPH 8. Anemia 9. Renal failure 10.COPD Rec: -Tele -serial ecg's -continue atenolol -Gentle lasix diuresis and follow output/renal function as tolerated -Continue asa/benazepril -Continue lopid -Consider bronchodilators Problems: Consultation Date/Type/Reason Admit Date/Time Sep 15, 2016 at 22:52 Initial Consult Date 09/16/16 Type of Consultation: cardiology Reason for Consultation Chest pain Referring Provider: KARON MEJIA MD Exam/Review of Systems Vital Signs Vitals Vital Signs Date Time Temp Pulse Resp B/P Pulse Ox O2 Delivery O2 Flow Rate FiO2 09/18/16 12:42 59 09/18/16 11:52 98.6 18 133/72 95 09/17/16 20:00 Nasal Cannula 2.0 Intake and Output 09/17/16 09/17/16 09/18/16 15:00 23:00 07:00 Intake Total 720 ml 500 ml Output Total 1200 ml 1200 ml Balance -480 ml -700 ml Exam Review of Systems: CONSTITUTIONAL: No fevers, chills. PULMONARY: mild sob CARDIOVASCULAR: No chest pain/palpitations GASTROINTESTINAL: No nausea/vomiting. GENITOURINARY: No hematuria/dysuria. MUSCULOSKELETAL: No myagias/arthalgias. PSYCHIATRIC: The patient denies depression. NEUROLOGIC: No weakness Constitutional: alert Psych: no complaints Head: normocephalic ENMT: mucosa pink and moist Neck: jvd (8 cm water), supple Respiratory: diminished breath sounds (at bases/B) Cardiovascular: regular rate and rhythm Gastrointestinal: non-tender, soft Musculoskeletal: muscle tone (normal) Extremities: edema (none) Neurological: other (No focal deficits) Results Result Diagram: 09/17/16 0650 09/18/16 0546 Results 24 hrs Laboratory Tests Test 09/17/16 17:35 09/17/16 20:28 09/18/16 05:46 09/18/16 08:14 Bedside Glucose 105 116 165 Sodium Level 143 Potassium Level 3.3 L Chloride Level 98 Carbon Dioxide Level 31 Anion Gap 17 H Blood Urea Nitrogen 21 H Creatinine 1.52 H Glucose Level 110 # Calcium Level 9.3 Test 09/18/16 11:36 09/18/16 12:30 Bedside Glucose 273 H 195 Medications Medications Current Medications Insulin Glargine (Lantus) 15 unit DAILY@08 SC Last administered on 09/18/16 08 :59; Admin Dose 15 UNIT; Start 09/16/16 at 08:00 Diagnostic Test (Pha) (Accu-Chek) 1 ea 02 XX ; Start 09/17/16 at 02:00 Nitroglycerin (Nitroglycerin (Sl Tab) 0.4 Mg) 1 tab Q5M PRN SL ANGINA; Start at 07:00 Miscellaneous Information 1 ea NOTE XX ; Start 09/16/16 at 07:00 Glucose (Glutose) 15 gm Q15M PRN PO DECREASED GLUCOSE; Start 09/16/16 at 07:00 Glucose (Glutose) 22.5 gm Q15M PRN PO DECREASED GLUCOSE; Start 09/16/16 at 07: 00 Dextrose (D50w Syringe) 25 ml Q15M PRN IV DECREASED GLUCOSE; Start 09/16/16 at 07:00 Dextrose (D50w Syringe) 50 ml Q15M PRN IV DECREASED GLUCOSE; Start 09/16/16 at 07:00 Glucagon (Glucagen) 1 mg Q15M PRN IM DECREASED GLUCOSE; Start 09/16/16 at 07:00 Glucose (Glutose) 15 gm Q15M PRN BUCCAL DECREASED GLUCOSE; Start 09/16/16 at 07 :00 Aspirin (Aspirin) 81 mg DAILY PO Last administered on 09/18/16 08:53; Admin Dose 81 MG; Start 09/16/16 at 09:00 Atenolol (Tenormin) 50 mg BID PO Last administered on 09/18/16 08:53; Admin Dose 50 MG; Start 09/16/16 at 09:00 Atorvastatin Calcium (Lipitor) 20 mg DAILY PO Last administered on 09/18/16 08 :52; Admin Dose 20 MG; Start 09/16/16 at 09:00 Docusate Sodium (Colace) 100 mg DAILY PO Last administered on 09/18/16 08:53; Admin Dose 100 MG; Start 09/16/16 at 09:00 Gabapentin (Neurontin) 600 mg TID PO Last administered on 09/18/16 12:35; Admin Dose 600 MG; Start 09/16/16 at 09:00 Gemfibrozil (Lopid) 600 mg BID PO Last administered on 09/18/16 08:53; Admin Dose 600 MG; Start 09/16/16 at 09:00 Lorazepam (Ativan) 1 mg HS PRN PO ANXIETY; Start 09/16/16 at 07:00 Meclizine HCl (Antivert) 25 mg DAILY PRN PO DIZZINESS; Start 09/16/16 at 07:00 Paroxetine HCl (Paxil) 20 mg DAILY PO Last administered on 09/18/16 08:53; Admin Dose 20 MG; Start 09/16/16 at 09:00 Polyethylene Glycol (Miralax) 17 gm BID PO Last administered on 09/18/16 08:53 ; Admin Dose 17 GM; Start 09/16/16 at 09:00 Sertraline HCl (Zoloft) 50 mg QHS PO Last administered on 09/17/16 20:31; Admin Dose 50 MG; Start 09/16/16 at 21:00 Tamsulosin HCl (Flomax) 0.4 mg DAILY PO Last administered on 09/18/16 08:52; Admin Dose 0.4 MG; Start 09/16/16 at 09:00 Terazosin HCl (Hytrin) 10 mg HS PO Last administered on 09/17/16 20:31; Admin Dose 10 MG; Start 09/16/16 at 21:00 Fenofibrate (Tricor) 48 mg DAILY PO Last administered on 09/18/16 08:53; Admin Dose 48 MG; Start 09/16/16 at 09:00 Latanoprost (Xalatan) 1 drop QHS BOTH EYES Last administered on 09/17/16 20:29 ; Admin Dose 1 DROP; Start 09/16/16 at 21:00 Trazodone HCl (Desyrel) 75 mg QHS PO Last administered on 09/17/16 20:30; Admin Dose 75 MG; Start 09/16/16 at 21:00 Hydralazine HCl (Apresoline) 10 mg Q4H PRN IV SBP>170; Start 09/16/16 at 16:30 Acetaminophen/ Hydrocodone Bitart ([place] (5/325)) 1 tab Q6H PRN PO PAIN LEVEL 4 -6 Last administered on 09/17/16 06:28; Admin Dose 1 TAB; Start 09/16/16 at 23: 30 Potassium Chloride (Klor-Con 20) 20 meq DAILY PO Last administered on 09:13; Admin Dose 20 MEQ; Start 09/18/16 at 09:00 Benazepril HCl (Lotensin) 20 mg BID PO Last administered on 09/18/16 08:53; Admin Dose 20 MG; Start 09/17/16 at 21:00 Furosemide (Lasix) 20 mg DAILY IV Last administered on 09/18/16 08:54; Admin Dose 20 MG; Start 09/18/16 at 09:00 ANN OZUNA Sep 18, 2016 14:54
[2016-09-18] MEDS ORDERED: BISACODYL (EC) 5 MG TAB PO PRN (17:30)
[2016-09-18] MEDS: TERAZOSIN 5 MG CAP PO SCH (20:47)
[2016-09-18] MEDS: SERTRALINE 50 MG TAB PO SCH (20:47)
[2016-09-18] MEDS: traZODone 50 MG TAB PO SCH (20:48)
[2016-09-18] MEDS: LATANOPROST 0.005% 2.5 ML OPH BOTH EYES SCH (20:48)
[2016-09-18] MEDS: HYDROCODONE/APAP (5/325) TAB PO PRN (23:46)
[2016-09-19] VITALS (11 sets, daily range): BP systolic 108–131; BP diastolic 51–63; PULSE 57–71; RESP 17–20
[2016-09-19] MEDS: ACCU-CHEK XX SCH (01:23)
[2016-09-19] MEDS: FUROSEMIDE 40 MG TAB PO SCH ×2 (06:27→17:42)
[2016-09-19] MEDS: INSULIN ASPART [NOVOLOG] 3 ML PEN SC SCH ×7 (07:55→21:00)
[2016-09-19] MEDS: PAROXETINE 20 MG TAB PO SCH (08:14)
[2016-09-19] MEDS: ASPIRIN 81 MG TAB PO SCH (08:14)
[2016-09-19] MEDS: GABAPENTIN 300 MG CAP PO SCH ×3 (08:14→21:56)
[2016-09-19] MEDS: ATORVASTATIN 20 MG TAB PO SCH (08:14)
[2016-09-19] MEDS: DOCUSATE SODIUM 100 MG CAP PO SCH (08:14)
[2016-09-19] MEDS: POLYETHYLENE GLYCOL 17 GM PACKET PO SCH ×3 (08:14→21:54)
[2016-09-19] MEDS: BENAZEPRIL 10 MG TAB PO SCH ×2 (08:15→21:55)
[2016-09-19] MEDS: ATENOLOL 50 MG TAB PO SCH ×2 (08:15→21:57)
[2016-09-19] MEDS: FENOFIBRATE 48 MG TAB PO SCH (08:15)
[2016-09-19] MEDS: POTASSIUM CHLORIDE (SR) 20 MEQ TAB PO SCH (08:15)
[2016-09-19] MEDS: METOLAZONE 5 MG TAB PO SCH (08:19)
[2016-09-19] MEDS: GEMFIBROZIL 600 MG TAB PO SCH ×2 (08:19→21:56)
[2016-09-19] MEDS: INSULIN GLARGINE [LANtus] 3 ML PEN SC SCH (08:23)
[2016-09-19 08:48] LABS: CALCIUM 9.8 mg/dl (8.4-10.2); CREATININE 1.83 mg/dl (0.61-1.24); POTASSIUM 3.3 mmol/L (3.5-5.1)
[2016-09-19] MEDS: TAMSULOSIN (SR) 0.4 MG CAP PO SCH (09:20)
--- NOTE | 2016-09-19 13:52 | PN ---
Date/Time of Note Date/Time of Note DATE: 09/19/16 TIME: 13:50 Assessment/Plan VTE Prophylaxis VTE Prophylaxis Intervention: ambulation Lines/Catheters IV C[facility]ter Type [facility]from [facility] Peripheral IV Urinary Cath still in place: No Assessment/Plan Chief Complaint/Hosp Course 1. SOB, better 2. HTN, controlled 3. Diastolic CHF 4. R/O IA 5. ASHD 6. COPD 7. Hyperlipidemia 8. DM type II controlled 9. CKD Problems: Assessment/Plan 1. Discharge planning Subjective 24 Hr Interval Summary Constitutional: improved, no complaints Exam/Review of Systems Vital Signs Vitals Vital Signs Date Time Temp Pulse Resp B/P Pulse Ox O2 Delivery O2 Flow Rate FiO2 09/19/16 12:00 57 09/19/16 11:58 98.5 18 128/63 96 09/17/16 20:00 Nasal Cannula 2.0 Intake and Output 09/18/16 09/18/16 09/19/16 15:00 23:00 07:00 Intake Total 840 ml 120 ml Output Total 2550 ml 450 ml Balance -1710 ml -330 ml Exam Constitutional: alert, oriented Respiratory: clear to auscultation Cardiovascular: regular rate and rhythm Results Result Diagram: 09/17/16 0650 09/19/16 0720 Results 24 hrs Laboratory Tests Test 09/18/16 17:11 09/18/16 20:03 09/19/16 07:20 09/19/16 08:00 Bedside Glucose 72 162 120 Sodium Level 142 Potassium Level 3.3 L Chloride Level 96 L Carbon Dioxide Level 29 Anion Gap 20 H Blood Urea Nitrogen 23 H Creatinine 1.83 H Glucose Level 103 Calcium Level 9.8 Test 09/19/16 11:44 Bedside Glucose 181 Medications Medications Current Medications Insulin Glargine (Lantus) 15 unit DAILY@08 SC Last administered on 09/19/16t 08: 23; Admin Dose 15 UNIT; Start 09/16/16 at 08:00 Diagnostic Test (Pha) (Accu-Chek) 1 ea 02 XX ; Start 09/17/16 at 02:00 Nitroglycerin (Nitroglycerin (Sl Tab) 0.4 Mg) 1 tab Q5M PRN SL ANGINA; Start at 07:00 Miscellaneous Information 1 ea NOTE XX ; Start 09/16/16 at 07:00 Glucose (Glutose) 15 gm Q15M PRN PO DECREASED GLUCOSE; Start 09/16/16 at 07:00 Glucose (Glutose) 22.5 gm Q15M PRN PO DECREASED GLUCOSE; Start 09/16/16 at 07: 00 Dextrose (D50w Syringe) 25 ml Q15M PRN IV DECREASED GLUCOSE; Start 09/16/16 at 07:00 Dextrose (D50w Syringe) 50 ml Q15M PRN IV DECREASED GLUCOSE; Start 09/16/16 at 07:00 Glucagon (Glucagen) 1 mg Q15M PRN IM DECREASED GLUCOSE; Start 09/16/16 at 07:00 Glucose (Glutose) 15 gm Q15M PRN BUCCAL DECREASED GLUCOSE; Start 09/16/16 at 07 :00 Aspirin (Aspirin) 81 mg DAILY PO Last administered on 09/19/16 08:14; Admin Dose 81 MG; Start 09/16/16 at 09:00 Atenolol (Tenormin) 50 mg BID PO Last administered on 09/19/16 08:15; Admin Dose 50 MG; Start 09/16/16 at 09:00 Atorvastatin Calcium (Lipitor) 20 mg DAILY PO Last administered on 09/19/16 08: 14; Admin Dose 20 MG; Start 09/16/16 at 09:00 Docusate Sodium (Colace) 100 mg DAILY PO Last administered on 09/19/16 08:14; Admin Dose 100 MG; Start 09/16/16 at 09:00 Gabapentin (Neurontin) 600 mg TID PO Last administered on 09/19/16 12:17; Admin Dose 600 MG; Start 09/16/16 at 09:00 Gemfibrozil (Lopid) 600 mg BID PO Last administered on 09/19/16 08:19; Admin Dose 600 MG; Start 09/16/16 at 09:00 Lorazepam (Ativan) 1 mg HS PRN PO ANXIETY; Start 09/16/16 at 07:00 Meclizine HCl (Antivert) 25 mg DAILY PRN PO DIZZINESS Last administered on 08:14; Admin Dose 25 MG; Start 09/16/16 at 07:00 Paroxetine HCl (Paxil) 20 mg DAILY PO Last administered on 09/19/16 08:14; Admin Dose 20 MG; Start 09/16/16 at 09:00 Polyethylene Glycol (Miralax) 17 gm BID PO Last administered on 09/19/16 08:14 ; Admin Dose 17 GM; Start 09/16/16 at 09:00 Sertraline HCl (Zoloft) 50 mg QHS PO Last administered on 09/18/16 20:47; Admin Dose 50 MG; Start 09/16/16 at 21:00 Tamsulosin HCl (Flomax) 0.4 mg DAILY PO Last administered on 09/19/16 09:20; Admin Dose 0.4 MG; Start 09/16/16 at 09:00 Terazosin HCl (Hytrin) 10 mg HS PO Last administered on 09/18/16 20:47; Admin Dose 10 MG; Start 09/16/16 at 21:00 Fenofibrate (Tricor) 48 mg DAILY PO Last administered on 09/19/16 08:15; Admin Dose 48 MG; Start 09/16/16 at 09:00 Latanoprost (Xalatan) 1 drop QHS BOTH EYES Last administered on 09/18/16 20:48 ; Admin Dose 1 DROP; Start 09/16/16 at 21:00 Trazodone HCl (Desyrel) 75 mg QHS PO Last administered on 09/18/16 20:48; Admin Dose 75 MG; Start 09/16/16 at 21:00 Hydralazine HCl (Apresoline) 10 mg Q4H PRN IV SBP>170 Last administered on 09/18 20:49; Admin Dose 10 MG; Start 09/16/16 at 16:30 Acetaminophen/ Hydrocodone Bitart ([place] (5/325)) 1 tab Q6H PRN PO PAIN LEVEL 4 -6 Last administered on 09/18/16 23:46; Admin Dose 1 TAB; Start 09/16/16 at 23: 30 Potassium Chloride (Klor-Con 20) 20 meq DAILY PO Last administered on 09/19/16 08:15; Admin Dose 20 MEQ; Start 09/18/16 at 09:00 Benazepril HCl (Lotensin) 20 mg BID PO Last administered on 09/18/16 20:47; Admin Dose 20 MG; Start 09/17/16 at 21:00 Metolazone (Zaroxolyn) 5 mg DAILY PO Last administered on 09/19/16 08:19; Admin Dose 5 MG; Start 09/19/16 at 09:00 Bisacodyl (Dulcolax) 10 mg BID PRN PO CONSTIPATION Last administered on 17:49; Admin Dose 10 MG; Start 09/18/16 at 17:30 TAINA PYLE Sep 19, 2016 13:52
[2016-09-19] MEDS ORDERED: POTASSIUM CHLORIDE 20 MEQ POWDER FOR ORAL SOLN PO ONE (14:00)
--- NOTE | 2016-09-19 14:44 | CONS ---
Date/Time of Note Date/Time of Note DATE: 09/19/16 TIME: 14:42 Assessment/Plan Assessment/Plan Additional Assessment/Plan 1.Chest pain-Trop Negative x 3 since admit - r/o [place], no intervention planned 2. SOB - better with rx, con't genle diuresis 3.HTN - lable - on med Rx 4.HL 5. DM 6. positive tob 7.BPH 8. Anemia 9. Renal failure - renal team follows 10.COPD - no wheezing Consultation Date/Type/Reason Admit Date/Time Sep 15, 2016 at 22:52 Initial Consult Date 09/16/16 Type of Consultation: cardiology Referring Provider: KARON MEJIA MD 24 HR Interval Summary Free Text/Dictation Better overall -= no ectopy on tele - con't med rx ROS: No fever, no chills, no nausea, no vomiting, no diarrhea/constipation No recent weight changes No chest pain, no PND, no orthopnea No dizziness, blurred vision No thirst, no heat or cold intolerance Exam/Review of Systems Vital Signs Vitals Vital Signs Date Time Temp Pulse Resp B/P Pulse Ox O2 Delivery O2 Flow Rate FiO2 09/19/16 12:00 57 09/19/16 11:58 98.5 18 128/63 96 09/17/16 20:00 Nasal Cannula 2.0 Intake and Output 09/18/16 09/18/16 09/19/16 15:00 23:00 07:00 Intake Total 840 ml 120 ml Output Total 2550 ml 450 ml Balance -1710 ml -330 ml Exam General: WN/WD/NAD, AOx 3 HEENT: Unicetric/atraumatic/EOMI (follow commands) NECK: JVD elevated, no thyromegaly Lymph: no lymphadenopathy HEART: regular with no S3, II/ systolic murmur at apex LUNGS: Coarse sounds ABD: soft, NT, ND, +BS : Intact Neuro: non focal SKIN: chronic changes EXT: trace edema Results Result Diagram: 09/17/16 0650 09/19/16 0720 Results 24 hrs Laboratory Tests Test 09/18/16 17:11 09/18/16 20:03 09/19/16 07:20 09/19/16 08:00 Bedside Glucose 72 162 120 Sodium Level 142 Potassium Level 3.3 L Chloride Level 96 L Carbon Dioxide Level 29 Anion Gap 20 H Blood Urea Nitrogen 23 H Creatinine 1.83 H Glucose Level 103 Calcium Level 9.8 Test 09/19/16 11:44 Bedside Glucose 181 Medications Medications Current Medications Insulin Glargine (Lantus) 15 unit DAILY@08 SC Last administered on 09/19/16 08: 23; Admin Dose 15 UNIT; Start 09/16/16 at 08:00 Diagnostic Test (Pha) (Accu-Chek) 1 ea 02 XX ; Start 09/17/16 at 02:00 Nitroglycerin (Nitroglycerin (Sl Tab) 0.4 Mg) 1 tab Q5M PRN SL ANGINA; Start at 07:00 Miscellaneous Information 1 ea NOTE XX ; Start 09/16/16 at 07:00 Glucose (Glutose) 15 gm Q15M PRN PO DECREASED GLUCOSE; Start 09/16/16 at 07:00 Glucose (Glutose) 22.5 gm Q15M PRN PO DECREASED GLUCOSE; Start 09/16/16 at 07: 00 Dextrose (D50w Syringe) 25 ml Q15M PRN IV DECREASED GLUCOSE; Start 09/16/16 at 07:00 Dextrose (D50w Syringe) 50 ml Q15M PRN IV DECREASED GLUCOSE; Start 09/16/16 at 07:00 Glucagon (Glucagen) 1 mg Q15M PRN IM DECREASED GLUCOSE; Start 09/16/16 at 07:00 Glucose (Glutose) 15 gm Q15M PRN BUCCAL DECREASED GLUCOSE; Start 09/16/16 at 07 :00 Aspirin (Aspirin) 81 mg DAILY PO Last administered on 09/19/16 08:14; Admin Dose 81 MG; Start 09/16/16 at 09:00 Atenolol (Tenormin) 50 mg BID PO Last administered on 09/19/16 08:15; Admin Dose 50 MG; Start 09/16/16 at 09:00 Atorvastatin Calcium (Lipitor) 20 mg DAILY PO Last administered on 09/19/16 08: 14; Admin Dose 20 MG; Start 09/16/16 at 09:00 Docusate Sodium (Colace) 100 mg DAILY PO Last administered on 09/19/16 08:14; Admin Dose 100 MG; Start 09/16/16 at 09:00 Gabapentin (Neurontin) 600 mg TID PO Last administered on 09/19/16 12:17; Admin Dose 600 MG; Start 09/16/16 at 09:00 Gemfibrozil (Lopid) 600 mg BID PO Last administered on 09/19/16 08:19; Admin Dose 600 MG; Start 09/16/16 at 09:00 Lorazepam (Ativan) 1 mg HS PRN PO ANXIETY; Start 09/16/16 at 07:00 Meclizine HCl (Antivert) 25 mg DAILY PRN PO DIZZINESS Last administered on 08:14; Admin Dose 25 MG; Start 09/16/16 at 07:00 Paroxetine HCl (Paxil) 20 mg DAILY PO Last administered on 09/19/16 08:14; Admin Dose 20 MG; Start 09/16/16 at 09:00 Polyethylene Glycol (Miralax) 17 gm BID PO Last administered on 09/19/16 08:14 ; Admin Dose 17 GM; Start 09/16/16 at 09:00 Sertraline HCl (Zoloft) 50 mg QHS PO Last administered on 09/18/16 20:47; Admin Dose 50 MG; Start 09/16/16 at 21:00 Tamsulosin HCl (Flomax) 0.4 mg DAILY PO Last administered on 09/19/16 09:20; Admin Dose 0.4 MG; Start 09/16/16 at 09:00 Terazosin HCl (Hytrin) 10 mg HS PO Last administered on 09/18/16 20:47; Admin Dose 10 MG; Start 09/16/16 at 21:00 Fenofibrate (Tricor) 48 mg DAILY PO Last administered on 09/19/16 08:15; Admin Dose 48 MG; Start 09/16/16 at 09:00 Latanoprost (Xalatan) 1 drop QHS BOTH EYES Last administered on 09/18/16 20:48 ; Admin Dose 1 DROP; Start 09/16/16 at 21:00 Trazodone HCl (Desyrel) 75 mg QHS PO Last administered on 09/18/16 20:48; Admin Dose 75 MG; Start 09/16/16 at 21:00 Hydralazine HCl (Apresoline) 10 mg Q4H PRN IV SBP>170 Last administered on 09/18 20:49; Admin Dose 10 MG; Start 09/16/16 at 16:30 Acetaminophen/ Hydrocodone Bitart ([place] (5/325)) 1 tab Q6H PRN PO PAIN LEVEL 4 -6 Last administered on 09/18/16 23:46; Admin Dose 1 TAB; Start 09/16/16 at 23: 30 Potassium Chloride (Klor-Con 20) 20 meq DAILY PO Last administered on 09/19/16 08:15; Admin Dose 20 MEQ; Start 09/18/16 at 09:00 Benazepril HCl (Lotensin) 20 mg BID PO Last administered on 09/18/16 20:47; Admin Dose 20 MG; Start 09/17/16 at 21:00 Metolazone (Zaroxolyn) 5 mg DAILY PO Last administered on 09/19/16 08:19; Admin Dose 5 MG; Start 09/19/16 at 09:00 Bisacodyl (Dulcolax) 10 mg BID PRN PO CONSTIPATION Last administered on 17:49; Admin Dose 10 MG; Start 09/18/16 at 17:30 RADHA SIMMONS MD Sep 19, 2016 14:44
[2016-09-19] MEDS: LATANOPROST 0.005% 2.5 ML OPH BOTH EYES SCH (21:54)
[2016-09-19] MEDS: traZODone 50 MG TAB PO SCH (21:55)
[2016-09-19] MEDS: SERTRALINE 50 MG TAB PO SCH (21:56)
[2016-09-19] MEDS: TERAZOSIN 5 MG CAP PO SCH (21:56)
[2016-09-20] VITALS (10 sets, daily range): BP systolic 96–117; BP diastolic 51–63; PULSE 55–82; RESP 17–20
[2016-09-20] MEDS: ACCU-CHEK XX SCH (02:00)
[2016-09-20] MEDS: FUROSEMIDE 40 MG TAB PO SCH ×2 (05:26→17:20)
[2016-09-20] MEDS: INSULIN ASPART [NOVOLOG] 3 ML PEN SC SCH ×6 (07:55→17:17)
[2016-09-20] MEDS: POLYETHYLENE GLYCOL 17 GM PACKET PO SCH (08:40)
[2016-09-20] MEDS: DOCUSATE SODIUM 100 MG CAP PO SCH (08:41)
[2016-09-20] MEDS: BENAZEPRIL 10 MG TAB PO SCH (08:41)
[2016-09-20] MEDS: ASPIRIN 81 MG TAB PO SCH (08:41)
[2016-09-20] MEDS: METOLAZONE 5 MG TAB PO SCH (08:41)
[2016-09-20] MEDS: ATENOLOL 50 MG TAB PO SCH (08:41)
[2016-09-20] MEDS: PAROXETINE 20 MG TAB PO SCH (08:41)
[2016-09-20] MEDS: FENOFIBRATE 48 MG TAB PO SCH (08:42)
[2016-09-20] MEDS: POTASSIUM CHLORIDE (SR) 20 MEQ TAB PO SCH (08:42)
[2016-09-20] MEDS: ATORVASTATIN 20 MG TAB PO SCH (08:42)
[2016-09-20] MEDS: TAMSULOSIN (SR) 0.4 MG CAP PO SCH (08:42)
[2016-09-20] MEDS: GABAPENTIN 300 MG CAP PO SCH ×2 (08:42→12:45)
[2016-09-20] MEDS: GEMFIBROZIL 600 MG TAB PO SCH (08:42)
[2016-09-20] MEDS: INSULIN GLARGINE [LANtus] 3 ML PEN SC SCH (08:45)
--- NOTE | 2016-09-20 14:16 | CONS ---
Date/Time of Note Date/Time of Note DATE: 09/20/16 TIME: 14:14 Assessment/Plan Assessment/Plan Additional Assessment/Plan 1.Chest pain-Trop Negative x 3 since admit - r/o [place], no intervention planned 2. SOB - better with rx, con't genle diuresis - IMPROVED 3.HTN - lable - on med Rx - OVERALL BETTER RX 4.HL 5. DM 6. positive tob 7.BPH 8. Anemia 9. Renal failure - renal team follows 10.COPD - no wheezing Consultation Date/Type/Reason Admit Date/Time Sep 15, 2016 at 22:52 Initial Consult Date 09/16/16 Type of Consultation: cardiology Referring Provider: KARON MEJIA MD 24 HR Interval Summary Free Text/Dictation No acute chnge - no CP - no significant ectopy on tele ROS: No fever, no chills, no nausea, no vomiting, no diarrhea/constipation No recent weight changes No chest pain, no PND, no orthopnea No dizziness, blurred vision No thirst, no heat or cold intolerance Exam/Review of Systems Vital Signs Vitals Vital Signs Date Time Temp Pulse Resp B/P Pulse Ox O2 Delivery O2 Flow Rate FiO2 09/20/16 12:37 55 09/20/16 11:07 98.0 20 115/59 100 09/17/16 20:00 Nasal Cannula 2.0 Intake and Output 09/19/16 09/19/16 09/20/16 15:00 23:00 07:00 Intake Total 900 ml 800 ml Output Total 850 ml Balance 900 ml -50 ml Exam General: WN/WD/NAD, AOx 1-2 HEENT: Unicetric/atraumatic/EOMI ( follow commands) NECK: JVD elevated, no thyromegaly Lymph: no lymphadenopathy HEART: regular with no S3, II/ systolic murmur at apex LUNGS: Coarse sounds ABD: soft, NT, ND, +BS : Intact Neuro: non focal SKIN: chronic changes EXT: trace edema Results Result Diagram: 09/17/16 0650 09/19/16 0720 Results 24 hrs Laboratory Tests Test 09/19/16 17:35 09/19/16 21:52 09/20/16 07:45 09/20/16 11:39 Bedside Glucose 137 148 133 301 H Test 09/20/16 11:40 Bedside Glucose 324 H Medications Medications Current Medications Insulin Glargine (Lantus) 15 unit DAILY@08 SC Last administered on 09/20/16 08: 45; Admin Dose 15 UNIT; Start 09/16/16 at 08:00 Diagnostic Test (Pha) (Accu-Chek) 1 ea 02 XX ; Start 09/17/16 at 02:00 Nitroglycerin (Nitroglycerin (Sl Tab) 0.4 Mg) 1 tab Q5M PRN SL ANGINA; Start at 07:00 Miscellaneous Information 1 ea NOTE XX ; Start 09/16/16 at 07:00 Glucose (Glutose) 15 gm Q15M PRN PO DECREASED GLUCOSE; Start 09/16/16 at 07:00 Glucose (Glutose) 22.5 gm Q15M PRN PO DECREASED GLUCOSE; Start 09/16/16 at 07: 00 Dextrose (D50w Syringe) 25 ml Q15M PRN IV DECREASED GLUCOSE; Start 09/16/16 at 07:00 Dextrose (D50w Syringe) 50 ml Q15M PRN IV DECREASED GLUCOSE; Start 09/16/16 at 07:00 Glucagon (Glucagen) 1 mg Q15M PRN IM DECREASED GLUCOSE; Start 09/16/16 at 07:00 Glucose (Glutose) 15 gm Q15M PRN BUCCAL DECREASED GLUCOSE; Start 09/16/16 at 07 :00 Aspirin (Aspirin) 81 mg DAILY PO Last administered on 09/20/16 08:41; Admin Dose 81 MG; Start 09/16/16 at 09:00 Atenolol (Tenormin) 50 mg BID PO Last administered on 09/20/16 08:41; Admin Dose 50 MG; Start 09/16/16 at 09:00 Atorvastatin Calcium (Lipitor) 20 mg DAILY PO Last administered on 09/20/16 08: 42; Admin Dose 20 MG; Start 09/16/16 at 09:00 Docusate Sodium (Colace) 100 mg DAILY PO Last administered on 09/20/16 08:41; Admin Dose 100 MG; Start 09/16/16 at 09:00 Gabapentin (Neurontin) 600 mg TID PO Last administered on 09/20/16 12:45; Admin Dose 600 MG; Start 09/16/16 at 09:00 Gemfibrozil (Lopid) 600 mg BID PO Last administered on 09/20/16 08:42; Admin Dose 600 MG; Start 09/16/16 at 09:00 Lorazepam (Ativan) 1 mg HS PRN PO ANXIETY; Start 09/16/16 at 07:00 Meclizine HCl (Antivert) 25 mg DAILY PRN PO DIZZINESS Last administered on 08:14; Admin Dose 25 MG; Start 09/16/16 at 07:00 Paroxetine HCl (Paxil) 20 mg DAILY PO Last administered on 09/20/16 08:41; Admin Dose 20 MG; Start 09/16/16 at 09:00 Polyethylene Glycol (Miralax) 17 gm BID PO Last administered on 09/20/16 08:40 ; Admin Dose 17 GM; Start 09/16/16 at 09:00 Sertraline HCl (Zoloft) 50 mg QHS PO Last administered on 09/19/16 21:56; Admin Dose 50 MG; Start 09/16/16 at 21:00 Tamsulosin HCl (Flomax) 0.4 mg DAILY PO Last administered on 09/20/16 08:42; Admin Dose 0.4 MG; Start 09/16/16 at 09:00 Terazosin HCl (Hytrin) 10 mg HS PO Last administered on 09/19/16 21:56; Admin Dose 10 MG; Start 09/16/16 at 21:00 Fenofibrate (Tricor) 48 mg DAILY PO Last administered on 09/20/16 08:42; Admin Dose 48 MG; Start 09/16/16 at 09:00 Latanoprost (Xalatan) 1 drop QHS BOTH EYES Last administered on 09/19/16 21:54 ; Admin Dose 1 DROP; Start 09/16/16 at 21:00 Trazodone HCl (Desyrel) 75 mg QHS PO Last administered on 09/19/16 21:55; Admin Dose 75 MG; Start 09/16/16 at 21:00 Hydralazine HCl (Apresoline) 10 mg Q4H PRN IV SBP>170 Last administered on 09/18 20:49; Admin Dose 10 MG; Start 09/16/16 at 16:30 Acetaminophen/ Hydrocodone Bitart ([place] (5/325)) 1 tab Q6H PRN PO PAIN LEVEL 4 -6 Last administered on 09/18/16 23:46; Admin Dose 1 TAB; Start 09/16/16 at 23: 30 Potassium Chloride (Klor-Con 20) 20 meq DAILY PO Last administered on 09/20/16 08:42; Admin Dose 20 MEQ; Start 09/18/16 at 09:00 Benazepril HCl (Lotensin) 20 mg BID PO Last administered on 09/20/16 08:41; Admin Dose 20 MG; Start 09/17/16 at 21:00 Metolazone (Zaroxolyn) 5 mg DAILY PO Last administered on 09/20/16 08:41; Admin Dose 5 MG; Start 09/19/16 at 09:00 Bisacodyl (Dulcolax) 10 mg BID PRN PO CONSTIPATION Last administered on 17:49; Admin Dose 10 MG; Start 09/18/16 at 17:30 RADHA SIMMONS MD Sep 20, 2016 14:16
--- NOTE | 2016-09-20 16:24 | PDOCDIS ---
Discharge Instructions CONDITION Patient Condition: Stable HOME CARE INSTRUCTIONS: Special Diet: card/carb ACTIVITY: Activity Restrictions: Slowly Increase Activity FOLLOW UP/APPOINTMENTS Follow-up Plan f/u pcp [address] mejia [address] melgoza 1 wk KARON MEJIA MD Sep 20, 2016 16:24
[2016-09-20] MEDS ORDERED: NIT4 SL (16:29)
[2016-09-20] MEDS ORDERED: POTA20TA15 PO (16:29)
[2016-09-20] MEDS ORDERED: LANT3I SC (16:29)
[2016-09-20] MEDS ORDERED: METO5TAB65 PO (16:29)
[2016-09-20] MEDS ORDERED: FURO40TA4 PO (16:29)
[2016-09-20] MEDS ORDERED: BENA10TA48 PO (16:29)
--- NOTE | 2016-09-20 17:20 | PN ---
Date/Time of Note Date/Time of Note DATE: 09/20/16 TIME: 17:20 Assessment/Plan VTE Prophylaxis VTE Prophylaxis Intervention: other Lines/Catheters IV Catheter Type (from Nrs): Peripheral IV Urinary Cath still in place: No Assessment/Plan Chief Complaint/Hosp Course A/P SOB BETTER HTN HX CHF R/O [place] ASHD COPD HX HYPOKALEMIA PLAN PER ORDER PER CARDIO KCL home Problems: Subjective 24 Hr Interval Summary Cardiovascular: no complaints Gastrointestinal: no complaints Exam/Review of Systems Vital Signs Vitals Vital Signs Date Time Temp Pulse Resp B/P Pulse Ox O2 Delivery O2 Flow Rate FiO2 09/20/16 16:11 82 09/20/16 15:24 98.5 20 117/63 98 09/17/16 20:00 Nasal Cannula 2.0 Intake and Output 09/19/16 09/19/16 09/20/16 15:00 23:00 07:00 Intake Total 900 ml 800 ml Output Total 850 ml Balance 900 ml -50 ml Exam Respiratory: clear to auscultation Cardiovascular: regular rate and rhythm Gastrointestinal: soft Musculoskeletal: nl extremities to inspection Results Result Diagram: 09/17/16 0650 09/19/16 0720 Results 24 hrs Laboratory Tests Test 09/19/16 17:35 09/19/16 21:52 09/20/16 07:45 09/20/16 11:39 Bedside Glucose 137 148 133 301 H Test 09/20/16 11:40 09/20/16 17:09 Bedside Glucose 324 H 122 Medications Medications Current Medications Insulin Glargine (Lantus) 15 unit DAILY@08 SC Last administered on 09/20/16t 08: 45; Admin Dose 15 UNIT; Start 09/16/16 at 08:00 Diagnostic Test (Pha) (Accu-Chek) 1 ea 02 XX ; Start 09/17/16 at 02:00 Nitroglycerin (Nitroglycerin (Sl Tab) 0.4 Mg) 1 tab Q5M PRN SL ANGINA; Start at 07:00 Miscellaneous Information 1 ea NOTE XX ; Start 09/16/16 at 07:00 Glucose (Glutose) 15 gm Q15M PRN PO DECREASED GLUCOSE; Start 09/16/16 at 07:00 Glucose (Glutose) 22.5 gm Q15M PRN PO DECREASED GLUCOSE; Start 09/16/16 at 07: 00 Dextrose (D50w Syringe) 25 ml Q15M PRN IV DECREASED GLUCOSE; Start 09/16/16 at 07:00 Dextrose (D50w Syringe) 50 ml Q15M PRN IV DECREASED GLUCOSE; Start 09/16/16 at 07:00 Glucagon (Glucagen) 1 mg Q15M PRN IM DECREASED GLUCOSE; Start 09/16/16 at 07:00 Glucose (Glutose) 15 gm Q15M PRN BUCCAL DECREASED GLUCOSE; Start 09/16/16 at 07 :00 Aspirin (Aspirin) 81 mg DAILY PO Last administered on 09/20/16 08:41; Admin Dose 81 MG; Start 09/16/16 at 09:00 Atenolol (Tenormin) 50 mg BID PO Last administered on 09/20/16 08:41; Admin Dose 50 MG; Start 09/16/16 at 09:00 Atorvastatin Calcium (Lipitor) 20 mg DAILY PO Last administered on 09/20/16 08: 42; Admin Dose 20 MG; Start 09/16/16 at 09:00 Docusate Sodium (Colace) 100 mg DAILY PO Last administered on 09/20/16 08:41; Admin Dose 100 MG; Start 09/16/16 at 09:00 Gabapentin (Neurontin) 600 mg TID PO Last administered on 09/20/16 12:45; Admin Dose 600 MG; Start 09/16/16 at 09:00 Gemfibrozil (Lopid) 600 mg BID PO Last administered on 09/20/16 08:42; Admin Dose 600 MG; Start 09/16/16 at 09:00 Lorazepam (Ativan) 1 mg HS PRN PO ANXIETY; Start 09/16/16 at 07:00 Meclizine HCl (Antivert) 25 mg DAILY PRN PO DIZZINESS Last administered on 08:14; Admin Dose 25 MG; Start 09/16/16 at 07:00 Paroxetine HCl (Paxil) 20 mg DAILY PO Last administered on 09/20/16 08:41; Admin Dose 20 MG; Start 09/16/16 at 09:00 Polyethylene Glycol (Miralax) 17 gm BID PO Last administered on 09/20/16 08:40 ; Admin Dose 17 GM; Start 09/16/16 at 09:00 Sertraline HCl (Zoloft) 50 mg QHS PO Last administered on 09/19/16 21:56; Admin Dose 50 MG; Start 09/16/16 at 21:00 Tamsulosin HCl (Flomax) 0.4 mg DAILY PO Last administered on 09/20/16 08:42; Admin Dose 0.4 MG; Start 09/16/16 at 09:00 Terazosin HCl (Hytrin) 10 mg HS PO Last administered on 09/19/16 21:56; Admin Dose 10 MG; Start 09/16/16 at 21:00 Fenofibrate (Tricor) 48 mg DAILY PO Last administered on 09/20/16 08:42; Admin Dose 48 MG; Start 09/16/16 at 09:00 Latanoprost (Xalatan) 1 drop QHS BOTH EYES Last administered on 09/19/16 21:54 ; Admin Dose 1 DROP; Start 09/16/16 at 21:00 Trazodone HCl (Desyrel) 75 mg QHS PO Last administered on 09/19/16 21:55; Admin Dose 75 MG; Start 09/16/16 at 21:00 Hydralazine HCl (Apresoline) 10 mg Q4H PRN IV SBP>170 Last administered on 09/18 20:49; Admin Dose 10 MG; Start 09/16/16 at 16:30 Acetaminophen/ Hydrocodone Bitart ([place] (5/325)) 1 tab Q6H PRN PO PAIN LEVEL 4 -6 Last administered on 09/18/16 23:46; Admin Dose 1 TAB; Start 09/16/16 at 23: 30 Potassium Chloride (Klor-Con 20) 20 meq DAILY PO Last administered on 09/20/16 08:42; Admin Dose 20 MEQ; Start 09/18/16 at 09:00 Benazepril HCl (Lotensin) 20 mg BID PO Last administered on 09/20/16 08:41; Admin Dose 20 MG; Start 09/17/16 at 21:00 Metolazone (Zaroxolyn) 5 mg DAILY PO Last administered on 09/20/16 08:41; Admin Dose 5 MG; Start 09/19/16 at 09:00 Bisacodyl (Dulcolax) 10 mg BID PRN PO CONSTIPATION Last administered on 17:49; Admin Dose 10 MG; Start 09/18/16 at 17:30 KARON MEJIA MD Sep 20, 2016 17:20
--- NOTE | 2016-09-21 15:36 | DS ---
Date/Time of Note Date/Time of Note DATE: 09/21/16 TIME: 15:34 Discharge Summary Admission/Discharge Info Admit Date/Time Sep 15, 2016 at 22:52 Discharge Date/Time Sep 20, 2016 at 18:02 Discharge Diagnosis CHronic diastolic CHF Patient Condition: Serious Consults Cardiology Procedures ECG and echocardiogram Hx of Present Illness pt was admitted with SOB and chest pain. Pt has obesity, COPD, and hs of smoking. Pt was diurised and medication regime adjusted Hospital Course A/P SOB BETTER HTN HX CHF R/O [place] ASHD COPD HX HYPOKALEMIA PLAN PER ORDER PER CARDIO KCL home Home Meds Active Scripts Insulin Glargine* (Lantus*) 100 Unit/Ml Soln, 15 UNIT SC DAILY@08 for 28 Days Prov:KARON MEJIA MD 09/20/16 Potassium Chloride* (K-Dur*) 20 Meq Tab.prt.sr, 20 MEQ PO DAILY for 30 Days Prov:KARON MEJIA MD 09/20/16 Metolazone* (Metolazone*) 5 Mg Tablet, 5 MG PO DAILY for 28 Days, TAB Prov:KARON MEJIA MD 09/20/16 Nitroglycerin* (Nitrostat*) 0.4 Mg Tab.subl, 1 TAB SL Q5M Y for ANGINA for 28 Days Prov:KARON MEJIA MD 09/20/16 Benazepril Hcl* (Benazepril Hcl*) 10 Mg Tablet, 20 MG PO BID for 30 Days, TAB Prov:KARON MEJIA MD 09/20/16 Furosemide* (Furosemide*) 40 Mg Tablet, 40 MG PO BID for 30 Days, TAB Prov:KARON MEJIA MD 09/20/16 Reported Medications Latanoprost (Latanoprost) 2.5 Ml Drops, 1 DROP BOTH EYES QHS, #1 BOTTLE 09/16/16 Trazodone Hcl* (Trazodone Hcl*) 50 Mg Tablet, 75 MG PO QHS, #30 TAB 09/16/16 Carvedilol* (Carvedilol*) 12.5 Mg Tablet, 12.5 MG PO BID, #60 TAB 09/15/16 Atorvastatin Calcium* (Atorvastatin Calcium*) 20 Mg Tablet, 20 MG PO DAILY, #30 TAB 09/15/16 Atenolol* (Atenolol*) 50 Mg Tablet, 50 MG PO BID, #60 TAB 09/15/16 Gemfibrozil* (Gemfibrozil*) 600 Mg Tablet, 600 MG PO BID, TAB 09/15/16 Gabapentin* (Gabapentin*) 600 Mg Tablet, 600 MG PO TID, #90 TAB 09/15/16 Finasteride* (Finasteride*) 5 Mg Tablet, 5 MG PO QHS, TAB 09/15/16 Fenofibrate, Micronized (Fenofibrate) 54 Mg Tablet, 54 MG PO DAILY, TAB 09/15/16 Docusate Sodium* (Dok*) 100 Mg Tablet, 100 MG PO DAILY, #30 CAP 09/15/16 Polyethylene Glycol* (Polyethylene Glycol*) 17 Gm Powd.pack, 17 GM PO BID, #60 PACKET 09/15/16 Paroxetine Hcl* (Paroxetine*) 20 Mg Tablet, 20 MG PO DAILY, TAB 09/15/16 Pantoprazole* (Pantoprazole*) 40 Mg Tablet.dr, 40 MG PO AC BREAKFAST DINNER, TAB 09/15/16 Insulin Aspart* (Novolog Insulin Pen*) 100 Unit/Ml Soln, 0 SC WITH MEALS BEDTIME for SLIDING SCALES, EA TAKE 2-10 UNITS 09/15/16 Metoclopramide* (Reglan*) 10 Mg Tablet, 10 MG PO AC MEALS, TAB 09/15/16 Glimepiride* (Glimepiride*) 2 Mg Tablet, 2 MG PO WITH BREAKFAST DINNE, TAB 09/15/16 Aspirin* (Aspirin* Chew) 81 Mg Tab.chew, 81 MG PO DAILY, TAB.CHEW 09/15/16 Terazosin Hcl* (Terazosin Hcl*) 5 Mg Capsule, 10 MG PO HS, CAP 09/15/16 Tamsulosin Hcl* (Tamsulosin Hcl*) 0.4 Mg Cap.er.24h, 0.4 MG PO DAILY, CAP 09/15/16 Sertraline Hcl* (Sertraline Hcl*) 50 Mg Tablet, 50 MG PO QHS, #30 TAB 09/15/16 Meclizine Hcl* (Meclizine Hcl*) 25 Mg Tablet, 25 MG PO DAILY Y for DIZZINESS, TAB 09/15/16 Lorazepam* (Lorazepam*) 1 Mg Tablet, 1 MG PO HS Y for ANXIETY, #30 TAB 09/15/16 Discontinued Reported Medications Clonidine Hcl* (Clonidine Hcl*) 0.2 Mg Tablet, 0.2 MG PO TID Y for HTN, TAB 09/15/16 Benazepril Hcl* (Benazepril Hcl*) 10 Mg Tablet, 10 MG PO DAILY, #30 TAB 09/15/16 Prednisone* (Prednisone*) 20 Mg Tab, 20 MG PO DAILY, TAB 09/15/16 Insulin NPH Human Isophane (Humulin N) 100 Unit/1 Ml Vial, 6 UNIT SQ Q6H, VIAL 09/15/16 Tamsulosin Hcl* (Tamsulosin Hcl*) 0.4 Mg Cap.er.24h, PO 05/23/13 Sertraline Hcl* (Sertraline Hcl*) 100 Mg Tablet, 100 MG PO 05/23/13 Sertraline Hcl* (Sertraline Hcl*) 20 Mg/Ml Oral.conc, 20 MG PO 05/23/13 Meclizine Hcl* (Meclizine Hcl*) 25 Mg Tablet, 25 MG PO 05/23/13 Influenza Tv-S 10- Vaccine (FLUVIRIN) 45 Mcg/0.5 Ml Vial, 45 MCG IM, VIAL 05/23/13 Finasteride* (Finasteride*) 5 Mg Tablet, PO 05/23/13 Fenofibrate, Micronized (Fenofibrate) 54 Mg Tablet, 54 MG PO 05/23/13 Cephalexin* (Cephalexin*) 500 Mg Capsule, PO 05/23/13 Benazepril Hcl* (Lotensin*) 40 Mg Tablet, 40 MG PO 05/23/13 Trazodone Hcl* (Trazodone Hcl*) 50 Mg Tablet, 50 MG PO HS 05/20/11 Metformin Hcl* (Metformin Hcl*) 500 Mg Tablet, 500 MG PO DAILY 05/20/11 Nifedipine* (Nifedipine ER*) 30 Mg Tablet.sa, 30 MG PO DAILY 05/20/11 Lorazepam* (Ativan*) 2 Mg Tablet, 2 MG PO Y 05/20/11 Clonidine Hcl* (Clonidine Hcl*) 0.2 Mg Tablet, 0.2 MG PO DAILY 05/20/11 Primary Care Provider Nickolas Agustin MD Pending Labs Laboratory Tests Test 09/20/16 17:09 Bedside Glucose 122mg/dL (70-220) TAINA PYLE Sep 21, 2016 15:36
== END 2016-09-20 18:02 | disposition home or self-care (01) | DRG 291 ==
LOC: E/R 17:06 → TEL 22:52
PROVIDERS: ADMIT Internal Medicine Nephrology; ATTEND Internal Medicine Nephrology
DX: I13.0 Hypertensive heart and chronic kidney disease with heart failure and stage 1 through stage 4 chronic kidney disease, or unspecified chronic kidney disease (principal); I50.33 Acute on chronic diastolic (congestive) heart failure; J44.9 Chronic obstructive pulmonary disease, unspecified; N18.9 Chronic kidney disease, unspecified; R07.9 Chest pain, unspecified; E78.5 Hyperlipidemia, unspecified; D64.9 Anemia, unspecified; Z72.0 Tobacco use; E87.6 Hypokalemia; E66.9 Obesity, unspecified; Z68.33 Body mass index [BMI] 33.0-33.9, adult
CPT/HCPCS: 36415; 71010; 80048; 80053; 80061; 82550; 82553; 82962; 83880; 84484; 85025; 93005; 93306; 96374; 96375; J1940; J0360; J1815; J2270; J2405